=== PATIENT | female | born 1955 | race Caucasian/White ===

== ENCOUNTER → 2016-06-05 | Outpatient (CLI) | payer MEDICAID | LOC: OD 13:37 | PROVIDERS: ATTEND Family Medicine | DX: M25.561 Pain in right knee (principal); J44.9 Chronic obstructive pulmonary disease, unspecified | CPT/HCPCS: 71020 ==

== ENCOUNTER 2017-01-23 09:20 | Emergency (ER) | payer MEDICAID ==
[2017-01-23 09:32] VITALS: BP 142/69
[2017-01-23] MEDS ORDERED: HYDROCODONE/ACETAMINOPHEN 5-325 MG TABLET PO ONE (09:54)
--- NOTE | 2017-01-23 09:54 | ER Document Report ---
HPI - HPI Patient complains to provider of: Low back, left hip pain Onset: Other - 3 days Onset/Duration: Persistent Quality of pain: Achy Pain Level: 4 Context: Patient presents complaining of left hip and low back pain for the past 3 days. Patient also complains of some left ear pain but states she has been taking Alavert to treat serous effusion of left ear. Patient denies any fever or injury. Patient denies any urinary retention or incontinence. Patient does report a previous history of a left hip replacement one year ago. Associated Symptoms: Earache, Other - Left hip, low back Exacerbated by: Standing, Movement, Walking Relieved by: Denies Similar symptoms previously: Yes Recently seen / treated by doctor: Yes - Treated for serous effusion to the ear - ROS ROS below otherwise negative: Yes Systems Reviewed and Negative: Yes All other systems reviewed and negative - CONSTITUTIONAL Constitutional: DENIES: Fever - EENT EENT: REPORTS: Ear Pain - NEURO Neurology: DENIES: Headache - GASTROINTESTINAL Gastrointestinal: DENIES: Nausea, Patient vomiting - URINARY Urinary: DENIES: Dysuria, Urgency - MUSCULOSKELETAL Musculoskeletal: REPORTS: Extremity pain, Back Pain - DERM Skin Color: Normal Skin Problems: None Past Medical History - General Information source: Patient - Social History Smoking Status: Current Every Day Smoker Frequency of alcohol use: None Drug Abuse: None Occupation: None Family History: Reviewed & Not Pertinent - Past Medical History Cardiac Medical History: Denies: Hx Coronary Artery Disease, Hx Heart Attack, Hx Hypertension Pulmonary Medical History: Reports: Hx Bronchitis, Hx COPD Denies: Hx Asthma, Hx Pneumonia Neurological Medical History: Denies: Hx Cerebrovascular Accident, Hx Seizures Renal/ Medical History: Denies: Hx Peritoneal Dialysis Musculoskeltal Medical History: Reports Hx Arthritis Psychiatric Medical History: Reports: Hx Schizophrenia Past Surgical History: Reports: Hx Orthopedic Surgery - Immunizations Hx Diphtheria, Pertussis, Tetanus Vaccination: No Vertical Provider Document - CONSTITUTIONAL Agree With Documented VS: Yes Exam Limitations: No Limitations General Appearance: WD/WN, No Apparent Distress - INFECTION CONTROL TRAVEL OUTSIDE OF THE [place] IN LAST 30 DAYS: No - HEENT HEENT: Atraumatic, Normal ENT Exam, Normocephalic - NECK Neck: Normal Inspection, Supple. negative: Lymphadenopathy-Left, Lymphadenopathy-Right - RESPIRATORY Respiratory: Breath Sounds Normal, No Respiratory Distress, Chest Non-Tender O2 Sat by Pulse Oximetry: 97 - CARDIOVASCULAR Cardiovascular: Regular Rate, Regular Rhythm, No Murmur - GI/ABDOMEN Gastrointestinal: Abdomen Soft, Abdomen Non-Tender, No Organomegaly, Normal Bowel Sounds - BACK Back: Abnormal Inspection - Lower lumbar paraspinal tenderness, no midline tenderness, step-off or deformity. negative: CVA Tenderness-Right, CVA Tenderness-Left - MUSCULOSKELETAL/EXTREMETIES Musculoskeletal/Extremeties: MAEW, FROM, Tender - Tenderness to the lateral aspect of left hip, no deformity or dislocation, No Edema. negative: Eccymosis - NEURO Level of Consciousness: Awake, Alert, Appropriate Motor/Sensory: No Motor Deficit - DERM Integumentary: Warm, Dry, No Rash Course - Vital Signs Vital signs: Temp Pulse Resp BP Pulse Ox 98.7 F 80 16 142/69 H 97 01/23/17 09:29 01/23/17 09:29 01/23/17 09:29 01/23/17 09:29 01/23/17 09:29 Discharge - Discharge Clinical Impression: Elevated blood pressure reading, Left hip pain Low back pain Qualifiers: Chronicity: unspecified Back pain laterality: left Sciatica presence: with sciatica Sciatica laterality: sciatica of left side Qualified Code(s): M54.42 - Lumbago with sciatica, left side Condition: Stable Disposition: HOME, SELF-CARE Instructions: Arthritis ([facility]), Low Back Pain ([facility]), Oral Narcotic Medication ( [facility]), Sciatica ([facility]) Additional Instructions: Return immediately for any new or worsening symptoms Followup with your primary care provider, call tomorrow to make a followup appointment Prescriptions: Hydrocodone/Acetaminophen [[place] 5-325 Tablet] 1 each PO Q6 PRN #15 tablet PRN Reason: Forms: Elevated Blood Pressure Referrals: JASPREET BANDA MD [Primary Care Provider] - Follow up as needed MAEGAN DUMONT DO [NO LOCAL MD] - 01/25/17
--- NOTE | 2017-01-23 10:45 | RADIOLOGY REPORT (SQ) ---
EXAM DESCRIPTION: HIP LEFT AP/LATERAL COMPLETED DATE/TIME: 01/23/2017 10:16 am REASON FOR STUDY: left hip pain COMPARISON: Left femur films 09/27/2014 NUMBER OF VIEWS: Two views. TECHNIQUE: AP pelvis and additional frog-leg view of the left hip. LIMITATIONS: Distal tip of the left femur intramedullary nail is not included in the field of view FINDINGS: MINERALIZATION: Osteopenic LEFT HIP: No fracture or dislocation. Left hip lag screw and intramedullary nail unchanged from 2014. There is ossification of a left greater trochanter bone fragment, chronic in appearance, simil ar compared to 2014. No significant left hip joint space narrowing or acetabular rim bony spurring. RIGHT HIP: No fracture or dislocation. No significant right hip joint space narrowing or acetabular rim bony spurring. PUBIS AND ISCHIUM: No fracture. PELVIS: No fracture. SACRUM: No fracture or dislocation. No worrisome bone lesions. LOWER LUMBAR SPINE: Lower lumbar facet arthropathy at L4-5. SOFT TISSUES: No findings. OTHER: No other significant finding. IMPRESSION: No acute changes. TECHNICAL DOCUMENTATION: JOB ID: [id number] [employer]- All Rights Reserved
--- NOTE | 2017-01-23 10:48 | RADIOLOGY REPORT (SQ) ---
EXAM DESCRIPTION: L SPINE WHOLE COMPLETED DATE/TIME: 01/23/2017 10:16 am REASON FOR STUDY: low back pain COMPARISON: Left hip films same date CT chest 07/15/2014 NUMBER OF VIEWS: Five views including obliques. TECHNIQUE: AP, lateral, oblique, and sacral radiographic images acquired of the lumbar spine. LIMITATIONS: None. FINDINGS: MINERALIZATION: Osteoporotic SEGMENTATION: There are 6 lumbar vertebral bodies. Transitional segment will be labeled T12. This p uts the most inferior well-developed disc space at L5-S1. ALIGNMENT: Normal. VERTEBRAE: Maintained height. No fracture or worrisome bone lesion. DISCS: High-grade disc space loss of height at L4-5 and L5-S1. Moderate disc space loss of height at L1-2. POSTERIOR ELEMENTS: Pedicles and facets are intact. No pars defect or posterior arch defects. Bulky bilateral facet arthropathy at L4-5 and L5-S1 HARDWARE: None in the spine. 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 PELVIS: Intact as visualized. No fractures or worrisome bone lesions. SI joints narrowed and scleroti c OTHER: No other significant finding. IMPRESSION: Lower lumbar degenerative changes. No acute lumbar compression deformity or fracture/malalignment. TECHNICAL DOCUMENTATION: JOB ID: [id number] [employer]- All Rights Reserved
[2017-01-23 11:04] LABS: APPEARANCE,URINE CLEAR; BILIRUBIN,URINE NEGATIVE (NEGATIVE); GLUCOSE, URINE NEGATIVE (NEGATIVE); KETONES,URINE NEGATIVE (NEGATIVE); LEUKOCYTE ESTERASE,URINE NEGATIVE (NEGATIVE); NITRITE,URINE NEGATIVE (NEGATIVE); PROTEIN,URINE NEGATIVE (NEGATIVE); URINE SPECIFIC GRAVITY 1.001; UROBILINOGEN,URINE NEGATIVE mg/dL (<2.0)
== END 2017-01-23 11:47 | disposition home or self-care (01) ==
LOC: ER 09:20
DX: M54.42 Lumbago with sciatica, left side (principal); M25.552 Pain in left hip; R03.0 Elevated blood-pressure reading, without diagnosis of hypertension; M54.5 Low back pain; H92.02 Otalgia, left ear; Z79.899 Other long term (current) drug therapy; F17.200 Nicotine dependence, unspecified, uncomplicated
CPT/HCPCS: 72110; 81001; 99283

== ENCOUNTER 2018-06-04 11:53 | Emergency (ER) | payer MEDICAID ==
[2018-06-04 12:57] LABS: ABSOLUTE EOSINOPHILS # (AUTO) 0.1 10^3/uL (0.0-0.6); ABSOLUTE LYMPHOCYTES (AUTO) 0.9 10^3/uL (0.5-4.7); ABSOLUTE MONOCYTES (AUTO) 1.6 10^3/uL (0.1-1.4); ABSOLUTE NEUT (AUTO) 8.8 10^3/uL (1.7-8.2); BASOPHILS % (AUTO) 0.4 % (0-2); EOSINOPHILS % (AUTO) 0.8 % (0-6); HEMATOCRIT 38.6 % (36.0-47.0); HEMOGLOBIN 13.5 g/dL (12.0-15.5); LYMPHOCYTES % (AUTO) 7.9 % (13-45); MEAN CORPUSCULAR HEMOGLOBIN 30.9 pg (27.0-33.4); MEAN CORPUSCULAR VOLUME 88 fl (80-97); MONOCYTES % (AUTO) 14.1 % (3-13); PLATELET COUNT 344 10^3/uL (150-450); RED BLOOD COUNT 4.37 10^6/uL (3.72-5.28); RED CELL DISTRIBUTION WIDTH 13.6 % (11.5-14.0); SEGMENTED NEUTROPHILS % (AUTO) 76.8 % (42-78); TOTAL CELLS COUNTED % (AUTO) 100 %; WHITE BLOOD COUNT 11.4 10^3/uL (4.0-10.5)
[2018-06-04] MEDS ORDERED: ZIPRASIDONE MESYLATE INJ/PF 20 MG SDV IM ONE (13:20)
[2018-06-04 13:25] LABS: ALANINE AMINOTRANSFERASE 96 U/L (9-52); ALBUMIN 4.6 g/dL (3.5-5.0); ALKALINE PHOSPHATASE 120 U/L (38-126); ANION GAP 12 (5-19); ASPARTATE AMINO TRANSFERASE 155 U/L (14-36); BILIRUBIN,DIRECT 0.3 mg/dL (0.0-0.4); BILIRUBIN,TOTAL 0.7 mg/dL (0.2-1.3); BLOOD UREA NITROGEN 10 mg/dL (7-20); CALCIUM 10.2 mg/dL (8.4-10.2); CARBON DIOXIDE 30 mmol/L (22-30); CHLORIDE 92 mmol/L (98-107); GLUCOSE 120 mg/dL (75-110); POTASSIUM 4.6 mmol/L (3.6-5.0); TOTAL PROTEIN 6.9 g/dL (6.3-8.2)
[2018-06-04 13:26] LABS: ACETAMINOPHEN < 10 ug/mL (10-30); ALCOHOL < 10 mg/dL (NONE DETECTED); SALICYLATE < 1.0 mg/dL (2.0-20.0)
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
[2018-06-04 14:04] LABS: APPEARANCE,URINE CLOUDY; BILIRUBIN,URINE NEGATIVE (NEGATIVE); COLOR,URINE YELLOW; GLUCOSE, URINE NEGATIVE (NEGATIVE); KETONES,URINE 20 mg/dL (NEGATIVE); LEUKOCYTE ESTERASE,URINE LARGE (NEGATIVE); NITRITE,URINE NEGATIVE (NEGATIVE); PROTEIN,URINE NEGATIVE (NEGATIVE); URINE SPECIFIC GRAVITY 1.006; UROBILINOGEN,URINE NEGATIVE mg/dL (<2.0)
[2018-06-04 14:17] LABS: URINE AMPHETAMINES SCREEN NEGATIVE; URINE BARBITURATES SCREEN NEGATIVE; URINE BENZODIAZEPINES SCREEN NEGATIVE; URINE COCAINE SCREEN NEGATIVE; URINE MARIJUANA (THC) SCREEN NEGATIVE; URINE METHADONE SCREEN NEGATIVE; URINE PHENCYCLIDINE SCREEN NEGATIVE
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
[2018-06-04] MEDS: CEPHALEXIN 500 MG CAPSULE PO SCH (14:31)
[2018-06-04] MEDS ORDERED: LORAZEPAM INJ 2 MG/1 ML VIAL IM ONE (15:45)
[2018-06-04] MEDS ORDERED: BENZTROPINE MESYLATE INJ 2 MG/2 ML AMPULE IM ONE (15:46)
--- NOTE | 2018-06-04 20:03 | EKG REPORT ---
SEVERITY:- OTHERWISE NORMAL ECG - SINUS TACHYCARDIA : Confirmed by: Bill Robles 04-Jun-2018 20:03:07
[2018-06-05] MEDS ORDERED: IPRATROPIUM/ALBUTEROL 0.5-2.5 MG/3 ML AMPUL NEB ONE ×2 (07:40→09:49)
--- NOTE | 2018-06-05 09:51 | ER Document Report ---
Doctor's Note Notes: Patient seen and examined, vital signs reviewed. Nursing notes reviewed, behavioral health team note reviewed. Patient was refusing oral medications yesterday, was given Geodon, 20 mg IM, as well as 2 mg of IM Ativan and 1 mg of IM Cogentin, she was started on Keflex for UTI, received 1 dose yesterday. Medications are noted in the chart to be ordered for today, discussed with the patient, the importance of taking the Prolixin 2.5 mg twice daily, she states that she was on in the past and it did work, she dates she is been off of it for some time. In addition to her mental health issues, patient was wheezing quite a bit this morning, she does have a significant smoking history denies history of COPD. She denies feeling short of breath or having any chest pain. No other complaints at this time. Patient does seem to be irritated still that she is in the hospital, but is seemingly willing to take the medication today.
[2018-06-05] MEDS: CEPHALEXIN 500 MG CAPSULE PO SCH ×3 (10:18→18:24)
[2018-06-05] MEDS: FLUPHENAZINE HCL 2.5 MG TABLET PO SCH ×4 (10:18→18:24)
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
[2018-06-05] MEDS ORDERED: FLUPHENAZINE DECANOATE INJ 125 MG/5 ML VIAL IM STA (11:51)
[2018-06-05] MEDS ORDERED: BENZTROPINE MESYLATE INJ 2 MG/2 ML AMPULE IM STA (11:52)
[2018-06-05] MEDS: BENZTROPINE MESYLATE 1 MG TABLET PO SCH (13:10)
[2018-06-05] MEDS ORDERED: BENZTROPINE MESYLATE 1 MG TABLET PO SCH (14:53)
[2018-06-06] MEDS ORDERED: ALBUTEROL SULFATE HFA (90 MCG/PUFF) 8 GM MDI (1 MDI/ER DISP) IH PRN (10:03)
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
[2018-06-06] MEDS: BENZTROPINE MESYLATE 1 MG TABLET PO SCH (11:07)
[2018-06-06] MEDS: FLUPHENAZINE HCL 2.5 MG TABLET PO SCH (11:07)
[2018-06-06] MEDS: CEPHALEXIN 500 MG CAPSULE PO SCH (11:08)
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
[2018-06-06 13:56] VITALS: BP 151/69
== END 2018-06-06 18:35 ==
LOC: ER 11:53
DX: F91.9 Conduct disorder, unspecified (principal); R41.82 Altered mental status, unspecified; F17.200 Nicotine dependence, unspecified, uncomplicated; J44.9 Chronic obstructive pulmonary disease, unspecified
CPT/HCPCS: 93005; 94640 ×2; 99285; 96372; 36415; 87086; 80307 ×4; 85025; 87088; 80053; 81001; 87186; 93010; J3490 ×4; J0515; J2060; J3486; J7620

== ENCOUNTER 2018-08-30 16:41 | Emergency (ER) | payer MEDICAID ==
[2018-08-30 17:23] VITALS: BP 123/90
--- NOTE | 2018-08-30 17:41 | EKG REPORT ---
SEVERITY:- NORMAL ECG - SINUS RHYTHM : Confirmed by: Emmie Allison MD 30-Aug-2018 17:41:11
[2018-08-30 17:45] LABS: ABSOLUTE LYMPHOCYTES (AUTO) 0.9 10^3/uL (0.5-4.7); ABSOLUTE MONOCYTES (AUTO) 1.2 10^3/uL (0.1-1.4); BASOPHILS % (AUTO) 0.4 % (0-2); EOSINOPHILS % (AUTO) 0.4 % (0-6); HEMATOCRIT 38.7 % (36.0-47.0); HEMOGLOBIN 13.4 g/dL (12.0-15.5); LYMPHOCYTES % (AUTO) 9.6 % (13-45); MEAN CORPUSCULAR HEMOGLOBIN 30.1 pg (27.0-33.4); MEAN CORPUSCULAR HGB CONC 34.5 g/dL (32.0-36.0); MEAN CORPUSCULAR VOLUME 87 fl (80-97); MONOCYTES % (AUTO) 12.8 % (3-13); PLATELET COUNT 291 10^3/uL (150-450); RED BLOOD COUNT 4.44 10^6/uL (3.72-5.28); RED CELL DISTRIBUTION WIDTH 13.5 % (11.5-14.0); SEGMENTED NEUTROPHILS % (AUTO) 76.8 % (42-78); TOTAL CELLS COUNTED % (AUTO) 100 %; WHITE BLOOD COUNT 9.2 10^3/uL (4.0-10.5)
[2018-08-30 18:08] LABS: ALANINE AMINOTRANSFERASE 43 U/L (9-52); ALBUMIN 3.9 g/dL (3.5-5.0); ALKALINE PHOSPHATASE 106 U/L (38-126); ANION GAP 10 (5-19); ASPARTATE AMINO TRANSFERASE 31 U/L (14-36); BILIRUBIN,DIRECT 0.3 mg/dL (0.0-0.4); BILIRUBIN,TOTAL 0.5 mg/dL (0.2-1.3); BLOOD UREA NITROGEN 9 mg/dL (7-20); CALCIUM 9.2 mg/dL (8.4-10.2); CARBON DIOXIDE 28 mmol/L (22-30); CHLORIDE 95 mmol/L (98-107); GLUCOSE 101 mg/dL (75-110); POTASSIUM 3.9 mmol/L (3.6-5.0); SODIUM 132.8 mmol/L (137-145); TOTAL PROTEIN 6.3 g/dL (6.3-8.2)
[2018-08-30 18:09] LABS: ACETAMINOPHEN < 10 ug/mL (10-30); ALCOHOL < 10 mg/dL (NONE DETECTED); SALICYLATE < 1.0 mg/dL (2.0-20.0)
--- NOTE | 2018-08-30 18:26 | ER Document Report ---
ED General - General Chief Complaint: Psych Problem Stated Complaint: IVC Time Seen by Provider: 08/30/18 17:50 Primary Care Provider: JASPREET BANDA MD [Primary Care Provider] - Follow up as needed Mode of Arrival: Medic Information source: Emergency Med Personnel, [facility] Records Notes: This is a 63-year-old female with a history of schizoaffective disorder since 1997 who was previously had ER encounters for significant agitation and aggressiveness in the setting of medicine noncompliance who was brought into the emergency room with significant agitation. The family had reported to EMS that the patient had stopped taking her medicines. Patient was given Haldol, Versed and Benadryl by EMS prior to arrival. Currently, patient is agitated. She knows where she is and she is interactive, but she is very angry and threatening to staff. TRAVEL OUTSIDE OF THE [place] IN LAST 30 DAYS: No - HPI Onset: Last week Onset/Duration: Gradual Quality of pain: No pain Severity: None Pain Level: Denies Associated symptoms: None. denies: Chest pain, Fever Exacerbated by: Denies Relieved by: Denies Similar symptoms previously: Yes Recently seen / treated by doctor: No - Related Data Allergies/Adverse Reactions: No Known Allergies Allergy (Verified 01/23/17 09:57) Past Medical History - General Information source: Patient - Social History Smoking Status: Never Smoker Cigarette use (# per day): No Chew tobacco use (# tins/day): No Frequency of alcohol use: None Drug Abuse: None Lives with: Family Family History: Reviewed & Not Pertinent Patient has suicidal ideation: No Patient has homicidal ideation: No - Past Medical History Cardiac Medical History: Denies: Hx Coronary Artery Disease, Hx Heart Attack, Hx Hypertension Pulmonary Medical History: Reports: Hx Bronchitis, Hx COPD Denies: Hx Asthma, Hx Pneumonia Neurological Medical History: Denies: Hx Cerebrovascular Accident, Hx Seizures Renal/ Medical History: Denies: Hx Peritoneal Dialysis Musculoskeletal Medical History: Reports Hx Arthritis Psychiatric Medical History: Reports: Hx Schizophrenia Past Surgical History: Reports: Hx Orthopedic Surgery - Immunizations Hx Diphtheria, Pertussis, Tetanus Vaccination: No Review of Systems - Review of Systems Constitutional: denies: Chills, Fever EENT: No symptoms reported Cardiovascular: No symptoms reported Respiratory: No symptoms reported Gastrointestinal: No symptoms reported Genitourinary: No symptoms reported Female Genitourinary: No symptoms reported Musculoskeletal: No symptoms reported Skin: No symptoms reported Hematologic/Lymphatic: No symptoms reported Neurological/Psychological: See HPI Physical Exam - Vital signs Vitals: Temp Pulse Resp BP Pulse Ox 98.0 F 88 18 123/90 H 100 08/30/18 17:21 08/30/18 17:21 08/30/18 17:21 08/30/18 17:21 08/30/18 17:21 Notes: Physical exam: GENERAL: Patient is alert and oriented, she is very agitated and aggressive. She is afebrile and her blood pressure is 125/70. HEAD: Atraumatic, normocephalic. EYES: Pupils equal round and reactive to light, extraocular movements intact, sclera anicteric, conjunctiva are normal. ENT: TMs normal, nares patent, oropharynx clear without exudates. Moist mucous membranes. NECK: Normal range of motion, supple without obvious mass or JVD. LUNGS: Breath sounds clear to auscultation bilaterally and equal. No wheezes rales or rhonchi. HEART: Regular rate and rhythm without murmurs, rubs or gallops. ABDOMEN: Soft, normoactive bowel sounds. No tenderness to palpation. No guarding, no rebound. No masses appreciated. EXTREMITIES: Normal range of motion, no pitting or edema. No clubbing or cyanosis. NEUROLOGICAL: Cranial nerves II through XII grossly intact. Normal speech, moving all extremities. PSYCH: Agitated and aggressive. SKIN: Mild abrasions to the right index finger. Course - Re-evaluation Re-evalutation: 08/30/18 20:05 Patient is medically stable for psychiatric disposition - Vital Signs Vital signs: Temp Pulse Resp BP Pulse Ox 98.0 F 88 18 123/90 H 100 08/30/18 17:21 08/30/18 17:21 08/30/18 17:21 08/30/18 17:21 08/30/18 17:21 - Laboratory Result Diagrams: 08/30/18 17:36 08/30/18 17:36 Laboratory results interpreted by me: 08/30/18 08/30/18 08/30/18 17:36 17:36 18:50 Lymphocytes % 9.6 L Sodium 132.8 L Chloride 95 L Creatinine 0.41 L Urine Ketones TRACE H Ur Leukocyte Esterase TRACE H Salicylates < 1.0 L Acetaminophen < 10 L - EKG Interpretation by Me Rate: Normal Rhythm: NSR - EKG shows normal sinus rhythm with a ventricular rate of 95, no acute ST-T wave changes Discharge - Discharge Clinical Impression: Decompensated Schizoaffective disorder Condition: Stable Disposition: PSYCH HOSP/UNIT Referrals: JASPREET BANDA MD [Primary Care Provider] - Follow up as needed
[2018-08-30] MEDS ORDERED: BENZTROPINE MESYLATE 1 MG TABLET PO ONE (18:33)
[2018-08-30] MEDS: FLUPHENAZINE HCL 2.5 MG TABLET PO SCH (18:44)
[2018-08-30 19:16] LABS: APPEARANCE,URINE CLEAR; COLOR,URINE STRAW; GLUCOSE, URINE NEGATIVE (NEGATIVE)
[2018-08-30 19:17] LABS: BILIRUBIN,URINE NEGATIVE (NEGATIVE); KETONES,URINE TRACE mg/dL (NEGATIVE); LEUKOCYTE ESTERASE,URINE TRACE (NEGATIVE); NITRITE,URINE NEGATIVE (NEGATIVE); PROTEIN,URINE NEGATIVE (NEGATIVE); URINE SPECIFIC GRAVITY 1.002; UROBILINOGEN,URINE NEGATIVE mg/dL (<2.0)
[2018-08-30 19:30] LABS: URINE AMPHETAMINES SCREEN NEGATIVE; URINE BARBITURATES SCREEN NEGATIVE; URINE BENZODIAZEPINES SCREEN UNCONFIRMED POSITIVE; URINE COCAINE SCREEN NEGATIVE; URINE MARIJUANA (THC) SCREEN NEGATIVE; URINE METHADONE SCREEN NEGATIVE; URINE PHENCYCLIDINE SCREEN NEGATIVE
[2018-08-30 19:32] LABS: FREE T3 4.65 pg/mL (2.77-5.27)
[2018-08-30 19:46] LABS: THYROID STIMULATING HORMONE 1.72 uIU/mL (0.47-4.68)
[2018-08-31] MEDS ORDERED: ZIPRASIDONE MESYLATE INJ/PF 20 MG SDV IM ONE ×3 (00:27→20:13)
[2018-08-31] MEDS ORDERED: FLUPHENAZINE DECANOATE INJ 125 MG/5 ML VIAL IM ONE (09:50)
[2018-08-31] MEDS: FLUPHENAZINE HCL 2.5 MG TABLET PO SCH (09:51)
[2018-08-31] MEDS: OLANZAPINE INJ/PF 10 MG SDV IM SCH ×2 (09:56→17:12)
--- NOTE | 2018-08-31 09:56 | ER Document Report ---
Doctor's Note Notes: 08/31/18 09:55 Rounds: Chart reviewed. Attempted to interview patient but she is uncooperative and unreliable. Patient has a history of schizophrenia and was brought in due to agitation. She is currently in restraints. Was given Haldol and Versed last night. Lab studies are all essentially normal. Vital signs were all essentially normal. Patient appears to be medically stable for transfer or discharge. Paulina Carr MD
[2018-08-31] MEDS: BENZTROPINE MESYLATE INJ 2 MG/2 ML AMPULE IM SCH (10:00)
[2018-08-31] MEDS ORDERED: OLANZAPINE 5 MG TABLET PO ONE (18:00)
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
--- NOTE | 2018-09-01 09:46 | ER Document Report ---
Doctor's Note Notes: 09/01/18 09:46 Rounds: Chart reviewed and patient interviewed. Patient is confused and somewhat agitated. Better than she has been. Does not require restraints at this time. Argumentative and demanding, but not threatening. Lab studies were all essentially normal. Vital signs are essentially normal. Patient appears to be medically stable for transfer or discharge. Paulina Carr MD
[2018-09-01] MEDS: OLANZAPINE INJ/PF 10 MG SDV IM SCH ×2 (10:02→22:04)
[2018-09-01] MEDS: BENZTROPINE MESYLATE INJ 2 MG/2 ML AMPULE IM SCH (10:02)
[2018-09-01] MEDS: FLUPHENAZINE HCL 2.5 MG TABLET PO SCH (10:03)
--- NOTE | 2018-09-01 14:52 | PSYCHOLOGICAL NOTE ---
Psych Note - Psych Note Date seen by psych provider: 09/01/18 Time seen by psych provider: 07:10 - Dicussion with overnight nurse, obersavtion and chart review Psych Note: Reason for Consult: 1st re evaluation, IVC, Schizoaffective Hx, noncompliant with medication, not eating, burning neck Contact Permissions: Unknown Patient is a 63 year old female in the ED on IVC by [facility] for history of MH and treatment, noncompliant with medication, not eating (lost 20 pounds in 10 days) and burning self on the neck. She was started on scheduled medications yesterday and still required additional Geodon 20MG IM last evening (2049) for continued stabilization. She has continued to require constant redirection, loud tone of voice/yelling/being derogatory. She is out of restraints and er overnight nurse 1400 will make 24 hours of being out of restraints. Diagnosis: 295.70 (F25.0) Schizoaffective Disorder, Bipolar Type Impression/Plan: Recommendation to maintain IVC. She continued to have mood lability per attending overnight nurse. She has a history of Schizoaffective, has history of noncompliance with medications and treatment, has been off her medication, not eating and burning her neck. Medications were just started yesterday. Will continue seeking inpatient placement. Consulted with Dr. Carlos regarding the management and care of patient. ED Physician in agreement with recommendations.
[2018-09-01] MEDS ORDERED: ZIPRASIDONE MESYLATE INJ/PF 20 MG SDV IM ONE (18:40)
[2018-09-01] MEDS ORDERED: DIPHENHYDRAMINE HCL 25 MG CAPSULE PO PRN (18:46)
--- NOTE | 2018-09-02 01:03 | ER Document Report ---
Doctor's Note Notes: 09/02/18 01:01 Patient agitated, cursing at staff, pacing. Was ordered Geodon earlier, but did not receive it. Patient will be given Geodon now.
[2018-09-02] MEDS ORDERED: ZIPRASIDONE MESYLATE INJ/PF 20 MG SDV IM ONE (02:00)
[2018-09-02] MEDS ORDERED: OLANZAPINE 5 MG TAB.RAPDIS PO ONE ×2 (10:27→11:40)
[2018-09-02] MEDS ORDERED: BENZTROPINE MESYLATE 1 MG TABLET PO ONE (10:27)
--- NOTE | 2018-09-02 10:29 | ER Document Report ---
Doctor's Note Notes: 09/02/18 10:28 Patient seen and examined, vital signs reviewed, patient still is rather agitated and aggressive, has been accepted for psychiatric inpatient facility this morning, will give her a dose of p.o. Zyprexa, and Yadi, she did take p.o. Benadryl this morning without issue. Patient agitated, not particularly a greeable with plan of care, but patient will benefit from inpatient psychiatric care, given her significant degree of agitation, and aggressive behavior.
[2018-09-02] MEDS: OLANZAPINE INJ/PF 10 MG SDV IM SCH (10:40)
[2018-09-02] MEDS: BENZTROPINE MESYLATE INJ 2 MG/2 ML AMPULE IM SCH (10:40)
[2018-09-02] MEDS: FLUPHENAZINE HCL 2.5 MG TABLET PO SCH (10:40)
--- NOTE | 2018-09-04 13:48 | PSYCHOLOGICAL NOTE ---
Psych Note - Psych Note Date seen by psych provider: 09/02/18 Time seen by psych provider: 07:40 Psych Note: Reason for Consult: IVC Contact Permissions: Unknown Patient is a 63 year old female in the ED on IVC by [facility] for history of MH and treatment, noncompliant with medication, not eating (lost 20 pounds in 10 days) and burning self on the neck. Check-in with patient. Patient is very agitated with yelling, cussing and pointing her finger. It is unclear what upsets patient as patient randomly will exit her room and start yelling and does not seem to be specifically upset about anything. Clinician notes patient has been very little personal space issues as patient approached very close to clinician, almost coming into contact. Clinician used clip board to establish more space and limit the patient's ability to make contact. Diagnosis: 295.70 (F25.0) Schizoaffective Disorder, Bipolar Type Impression/Plan: Recommendation to maintain IVC. She continued to have mood lability and randomly comes out of her room to yell. She has a history of Schizoaffective, has history of noncompliance with medications and treatment, has been off her medication, not eating and burning her neck. Patient was accepted to [facility]; transportation was requested. Dr. Carlos was consulted and the care and management of this patient; attending physicians in agreement with recommendations and disposition.
== END 2018-09-02 12:10 ==
LOC: ER 16:41
DX: F25.0 Schizoaffective disorder, bipolar type (principal); Z78.1 Physical restraint status; M54.2 Cervicalgia; R63.0 Anorexia
CPT/HCPCS: 93005; 99285; 36415; 84439; 80307 ×4; 84443; 85025; 80053; 81001; 84481; 93010; J3490 ×8; J0515 ×2; J2680; J3486 ×2

== ENCOUNTER 2018-11-29 19:54 | Emergency (ER) | payer SELFPAY ==
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
[2018-11-29 20:58] LABS: ABSOLUTE EOSINOPHILS # (AUTO) 0.1 10^3/uL (0.0-0.6); ABSOLUTE MONOCYTES (AUTO) 0.8 10^3/uL (0.1-1.4); ABSOLUTE NEUT (AUTO) 5.4 10^3/uL (1.7-8.2); BASOPHILS % (AUTO) 0.5 % (0-2); EOSINOPHILS % (AUTO) 1.3 % (0-6); HEMATOCRIT 37.1 % (36.0-47.0); HEMOGLOBIN 12.7 g/dL (12.0-15.5); LYMPHOCYTES % (AUTO) 13.3 % (13-45); MEAN CORPUSCULAR HEMOGLOBIN 30.2 pg (27.0-33.4); MEAN CORPUSCULAR HGB CONC 34.3 g/dL (32.0-36.0); MEAN CORPUSCULAR VOLUME 88 fl (80-97); PLATELET COUNT 269 10^3/uL (150-450); RED BLOOD COUNT 4.22 10^6/uL (3.72-5.28); RED CELL DISTRIBUTION WIDTH 13.5 % (11.5-14.0); SEGMENTED NEUTROPHILS % (AUTO) 73.9 % (42-78); TOTAL CELLS COUNTED % (AUTO) 100 %; WHITE BLOOD COUNT 7.3 10^3/uL (4.0-10.5)
[2018-11-29 21:16] LABS: ACETAMINOPHEN < 10 ug/mL (10-30); ALBUMIN 3.9 g/dL (3.5-5.0); ALCOHOL < 10 mg/dL (NONE DETECTED); ALKALINE PHOSPHATASE 100 U/L (38-126); ANION GAP 9 (5-19); ASPARTATE AMINO TRANSFERASE 48 U/L (14-36); BILIRUBIN,DIRECT 0.2 mg/dL (0.0-0.4); BILIRUBIN,TOTAL 0.3 mg/dL (0.2-1.3); BLOOD UREA NITROGEN 9 mg/dL (7-20); CALCIUM 9.2 mg/dL (8.4-10.2); CARBON DIOXIDE 28 mmol/L (22-30); CHLORIDE 93 mmol/L (98-107); GLUCOSE 127 mg/dL (75-110); POTASSIUM 3.9 mmol/L (3.6-5.0); SALICYLATE < 1.0 mg/dL (2.0-20.0); TOTAL PROTEIN 6.1 g/dL (6.3-8.2)
[2018-11-29 21:38] LABS: APPEARANCE,URINE SLIGHTLY-CLOUDY; BILIRUBIN,URINE NEGATIVE (NEGATIVE); COLOR,URINE YELLOW; GLUCOSE, URINE NEGATIVE (NEGATIVE); KETONES,URINE NEGATIVE (NEGATIVE); LEUKOCYTE ESTERASE,URINE MODERATE (NEGATIVE); NITRITE,URINE NEGATIVE (NEGATIVE); PROTEIN,URINE NEGATIVE (NEGATIVE); URINE SPECIFIC GRAVITY 1.002; UROBILINOGEN,URINE NEGATIVE mg/dL (<2.0)
[2018-11-29 21:44] LABS: URINE AMPHETAMINES SCREEN NEGATIVE; URINE BENZODIAZEPINES SCREEN UNCONFIRMED POSITIVE; URINE COCAINE SCREEN NEGATIVE; URINE MARIJUANA (THC) SCREEN NEGATIVE; URINE PHENCYCLIDINE SCREEN NEGATIVE
[2018-11-29 21:50] LABS: URINE BARBITURATES SCREEN NEGATIVE
[2018-11-29 21:51] LABS: URINE METHADONE SCREEN NEGATIVE
[2018-11-30] MEDS ORDERED: LORAZEPAM INJ 2 MG/1 ML VIAL IM ONE ×2 (00:53→21:36)
[2018-11-30] MEDS ORDERED: DIPHENHYDRAMINE HCL 50 MG/ML VIAL IM ONE ×2 (00:53→21:38)
--- NOTE | 2018-11-30 07:28 | EKG REPORT ---
SEVERITY:- BORDERLINE ECG - SINUS RHYTHM BORDERLINE R WAVE PROGRESSION, ANTERIOR LEADS LIKELY DUE TO LEAD PLACEMENT ERROR. CLINICAL CORRELATIO N NEEDED. : Confirmed by: Chuck Riley MD 30-Nov-2018 07:27:22
[2018-11-30 09:07] VITALS: BP 159/85
--- NOTE | 2018-11-30 10:49 | ER Document Report ---
Doctor's Note Notes: 11/30/18 10:48 Rounds: Chart reviewed and patient interviewed. Patient is here to be evaluated for aggressive behavior. Has a history of schizophrenia but noncompliant with medications. Lab studies showed sodium slightly low at 130 chloride 93. Urinalysis had some white cells, but patient has no symptoms of UTI. A culture was ordered. Vital signs are all normal. Patient appears to be medically stable for transfer or discharge. Paulina Carr MD
[2018-11-30] MEDS ORDERED: FLUPHENAZINE DECANOATE INJ 125 MG/5 ML VIAL IM ONE (11:24)
[2018-11-30] MEDS ORDERED: FLUPHENAZINE HCL 2.5 MG TABLET PO SCH (12:00)
[2018-11-30] MEDS: BENZTROPINE MESYLATE 1 MG TABLET PO SCH ×2 (13:09→18:46)
[2018-11-30] MEDS: FLUPHENAZINE HCL 2.5 MG TABLET PO SCH ×2 (13:10→22:10)
--- NOTE | 2018-12-01 09:28 | PSYCHOLOGICAL NOTE ---
Psych Note - Psych Note Date seen by psych provider: 12/01/18 Time seen by psych provider: 07:10 - 83 Psych Note: Reason for Consult: Psychosis Contact Permissions: Check-in with patient. Patient is calm and able to talk with clinician with organized and linear conversation. Patient reports that she has a provider that she sees but does not feel the need for psychiatric services. Patient identified wanting to go home so she can do laundry. She states she has no concerns and this time. Patient denies thoughts of wanting to harm herself or others. Patient makes good eye contact and does not demonstrate any psychomotor agitation. Chart review Patient was seen 08/30/2018 until 09/02/2018 when she was accepted to [facility] for inpatient treatment. Patient's mood was liable and she was verbally aggressive during that entire [facility] visit. Patient was seen 06/04/2018 until 06/06/2018 when she was accepted to [facility] for inpatient treatment. Patient's mood was liable and she was verbally aggressive during that entire [facility] visit. There was no prior visits for psychiatric concerns. Patient is noted to only to have one prescription from August from [facility], no other prescriptions are in the system. Patient is demonstrating noncompliance with medications and outpatient follow up. Diagnosis: 295.70 (F25.0) Schizoaffective Disorder, Bipolar Type Medication recommendations per [facility]'s contracted psychiatrist Dr. Lydia LUNDBERG are as follows Prolixin 2.5 mg twice daily Cogentin 1 mg twice daily Impression/Plan: Recommendation to rescind IVC and is cleared from acute psychiatric services. Prior to 2018 patient was not seen for any psychiatric concerns. There does not seem to be a significant history of outpatient services. Patient and patient's family have identified in the past psychiatric diagnosis. At this time patient is presenting calm and engaging in organized linear conversations. She denies any thoughts of wanting to harm herself or others. There is no behaviors to support that she is responding to internal stimuli. Patient received a Prolixin Decanoate shot to assist with her medication noncompliance. Patient is recommended to follow-up with a neurologist as people with serious chronic mental health disorders, noted neurodegenerative processes can begin earlier than general population. Dr. Carlos was consulted and the care and management of this patient; attending physicians in agreement with recommendations and disposition.
--- NOTE | 2018-12-01 09:44 | ER Document Report ---
Doctor's Note Notes: Patient seen and examined, vital signs reviewed, patient presented with combative behavior, off of her medications, she is stable this morning, cooperative, answering questions appropriately, and at this point I feel that the patient can be discharged home, will prescribe her Prolixin 2.5 mg twice daily and Cogentin 1 mg twice daily, and have her follow-up with her outpatient psychiatric services. Patient agreeable to plan of care and will be discharged home, IVC paperwork was rescinded.
[2018-12-01] MEDS: BENZTROPINE MESYLATE 1 MG TABLET PO SCH (13:02)
[2018-12-01] MEDS: FLUPHENAZINE HCL 2.5 MG TABLET PO SCH (13:02)
== END 2018-12-01 19:05 | disposition home or self-care (01) ==
LOC: ER 19:54
DX: F25.9 Schizoaffective disorder, unspecified (principal); T43.3X6A Underdosing of phenothiazine antipsychotics and neuroleptics, initial encounter; T50.906A Underdosing of unspecified drugs, medicaments and biological substances, initial encounter; Z91.128 Patient's intentional underdosing of medication regimen for other reason; Z91.14 Patient's other noncompliance with medication regimen; E87.1 Hypo-osmolality and hyponatremia; R45.6 Violent behavior; Z87.891 Personal history of nicotine dependence
CPT/HCPCS: 36415; 80053; 80307; 81001; 85025; 87086; 87088; 93005; 93010

== ENCOUNTER 2019-01-14 19:25 | Emergency (ER) | payer SELFPAY ==
[2019-01-14] MEDS ORDERED: HALOPERIDOL LACTATE INJ 5 MG/1 ML VIAL IM ONE (19:29)
[2019-01-14] MEDS ORDERED: LORAZEPAM INJ 2 MG/1 ML VIAL IM ONE (19:29)
[2019-01-14] MEDS ORDERED: DIPHENHYDRAMINE HCL 50 MG/ML VIAL IM ONE (19:29)
--- NOTE | 2019-01-14 19:38 | ER Document Report ---
ED Psych Disorder / Suicide - General Stated Complaint: IVC Mode of Arrival: Carried Information source: Law Enforcement TRAVEL OUTSIDE OF THE U.S. IN LAST 30 DAYS: No - HPI Notes: 63 yr old female presents today by [place] [employer] for complaints of hallucinations while carrying around a knife in the house threatening to kill everybody. Patient is screaming and combative. Has a history of schizophrenia. no chest pain, no sob. - Related Data Allergies/Adverse Reactions: No Known Allergies Allergy (Verified 01/23/17 09:57) Past Medical History - General Information source: Patient, Law Enforcement - Social History Smoking Status: Unknown if Ever Smoked Lives with: Spouse/Significant other Family History: Reviewed & Not Pertinent - Past Medical History Cardiac Medical History: Denies: Hx Coronary Artery Disease, Hx Heart Attack, Hx Hypertension Pulmonary Medical History: Reports: Hx Bronchitis, Hx COPD Denies: Hx Asthma, Hx Pneumonia Neurological Medical History: Denies: Hx Cerebrovascular Accident, Hx Seizures Renal/ Medical History: Denies: Hx Peritoneal Dialysis Musculoskeletal Medical History: Reports Hx Arthritis Psychiatric Medical History: Reports: Hx Schizophrenia Past Surgical History: Reports: Hx Orthopedic Surgery - Immunizations Hx Diphtheria, Pertussis, Tetanus Vaccination: No Review of Systems - Review of Systems Constitutional: No symptoms reported EENT: No symptoms reported Cardiovascular: No symptoms reported Respiratory: No symptoms reported Gastrointestinal: No symptoms reported Genitourinary: No symptoms reported Female Genitourinary: No symptoms reported Musculoskeletal: No symptoms reported Skin: No symptoms reported Hematologic/Lymphatic: No symptoms reported Neurological/Psychological: See HPI Physical Exam - Notes Notes: PHYSICAL EXAMINATION: GENERAL: Well-appearing, well-nourished and in no acute distress. HEAD: Atraumatic, normocephalic. EYES: Pupils equal round and reactive to light, extraocular movements intact, conjunctiva are normal. ENT: Nares patent, oropharynx clear without exudates. Moist mucous membranes. NECK: Normal range of motion, supple without lymphadenopathy LUNGS: Breath sounds clear to auscultation bilaterally and equal. No wheezes rales or rhonchi. HEART: Regular rate and rhythm without murmurs ABDOMEN: Soft, nontender, nondistended abdomen. No guarding, no rebound. No m asses appreciated. Female : deferred Musculoskeletal: Normal range of motion, no pitting or edema. No cyanosis. NEUROLOGICAL: Cranial nerves grossly intact. Normal speech, normal gait. Normal sensory, motor exams PSYCH: Yelling, screaming SKIN: Warm, Dry, normal turgor, no rashes or lesions noted. Course - Re-evaluation Re-evalutation: 01/14/19 19:33 1920- Patient was trying to hit the police officers as well as the nurse, threatening to "kill everyone", while kicking and screaming. Attempted to use distraction prior to using four-point restraints was decided to place patient in a four-point restraints will administer medications. Signs stable no distress. Patient given 2mg Ativan, 50mg Benadryl and 5mg Haldol IM. Patient in no distress 10 minutes after medication given, discussed with nurse releasing restraints. Report given MICHELLE Manrique at 1999 Discharge - Discharge Clinical Impression: Suicidal behavior Condition: Stable Disposition: PSYCH HOSP/UNIT
[2019-01-14 20:34] LABS: ABSOLUTE BASOPHILS # (AUTO) 0.1 10^3/uL (0.0-0.2); ABSOLUTE LYMPHOCYTES (AUTO) 0.9 10^3/uL (0.5-4.7); ABSOLUTE MONOCYTES (AUTO) 0.8 10^3/uL (0.1-1.4); ABSOLUTE NEUT (AUTO) 5.1 10^3/uL (1.7-8.2); BASOPHILS % (AUTO) 0.8 % (0-2); EOSINOPHILS % (AUTO) 0.7 % (0-6); HEMATOCRIT 36.1 % (36.0-47.0); HEMOGLOBIN 12.7 g/dL (12.0-15.5); LYMPHOCYTES % (AUTO) 12.4 % (13-45); MEAN CORPUSCULAR HEMOGLOBIN 30.5 pg (27.0-33.4); MEAN CORPUSCULAR VOLUME 87 fl (80-97); PLATELET COUNT 293 10^3/uL (150-450); RED BLOOD COUNT 4.15 10^6/uL (3.72-5.28); RED CELL DISTRIBUTION WIDTH 13.3 % (11.5-14.0); SEGMENTED NEUTROPHILS % (AUTO) 74.1 % (42-78); TOTAL CELLS COUNTED % (AUTO) 100 %; WHITE BLOOD COUNT 6.9 10^3/uL (4.0-10.5)
[2019-01-14 20:56] LABS: ACETAMINOPHEN < 10 ug/mL (10-30); ALBUMIN 3.7 g/dL (3.5-5.0); ALCOHOL < 10 mg/dL (NONE DETECTED); ALKALINE PHOSPHATASE 98 U/L (38-126); ANION GAP 7 (5-19); ASPARTATE AMINO TRANSFERASE 93 U/L (14-36); BILIRUBIN,DIRECT 0.1 mg/dL (0.0-0.4); BILIRUBIN,TOTAL 0.6 mg/dL (0.2-1.3); BLOOD UREA NITROGEN 3 mg/dL (7-20); CALCIUM 9.1 mg/dL (8.4-10.2); CARBON DIOXIDE 30 mmol/L (22-30); CHLORIDE 96 mmol/L (98-107); GLUCOSE 111 mg/dL (75-110); POTASSIUM 3.6 mmol/L (3.6-5.0); SALICYLATE < 1.0 mg/dL (2.0-20.0); TOTAL PROTEIN 6.2 g/dL (6.3-8.2)
--- NOTE | 2019-01-15 09:58 | ER Document Report ---
Doctor's Note Notes: 01/15/19 09:56 Rounds: Chart reviewed and patient interviewed. Patient was brought in as an IVC last night behaving uncontrollably, hallucinating, waving a knife, and had to be sedated pharmacologically with Benadryl, Haldol, and Ativan. At one point she was also put in restraints. This morning, patient is ambulatory without any difficulty, not really pleasant, but cooperative and a bit argumentative. Says that none of what I just related took place. Vital signs are all normal. Lab studies are essentially normal although we do not have a urine on this lady to do drug screening yet. Patient appears to be medically stable for transfer or discharge. Paulina Carr MD 01/15/19 10:06
[2019-01-15 11:19] LABS: APPEARANCE,URINE TURBID; BILIRUBIN,URINE NEGATIVE (NEGATIVE); COLOR,URINE YELLOW; GLUCOSE, URINE NEGATIVE (NEGATIVE); KETONES,URINE NEGATIVE (NEGATIVE); LEUKOCYTE ESTERASE,URINE LARGE (NEGATIVE); NITRITE,URINE NEGATIVE (NEGATIVE); PROTEIN,URINE 30 mg/dL (NEGATIVE); URINE SPECIFIC GRAVITY 1.005; UROBILINOGEN,URINE NEGATIVE mg/dL (<2.0)
[2019-01-15 14:16] LABS: URINE AMPHETAMINES SCREEN NEGATIVE; URINE BARBITURATES SCREEN NEGATIVE; URINE BENZODIAZEPINES SCREEN NEGATIVE; URINE COCAINE SCREEN NEGATIVE; URINE MARIJUANA (THC) SCREEN NEGATIVE; URINE METHADONE SCREEN NEGATIVE; URINE PHENCYCLIDINE SCREEN NEGATIVE
--- NOTE | 2019-01-15 17:33 | EKG REPORT ---
SEVERITY:- BORDERLINE ECG - SINUS RHYTHM BORDERLINE T ABNORMALITIES, ANT-LAT LEADS : Confirmed by: Chuck Riley MD 15-Jan-2019 17:32:59
[2019-01-16] MEDS ORDERED: DIPHENHYDRAMINE HCL 50 MG/ML VIAL IM ONE (03:09)
[2019-01-16] MEDS ORDERED: LORAZEPAM INJ 2 MG/1 ML VIAL IM ONE (03:10)
[2019-01-16] MEDS ORDERED: HALOPERIDOL LACTATE INJ 5 MG/1 ML VIAL IM ONE (03:13)
--- NOTE | 2019-01-16 10:10 | ER Document Report ---
Doctor's Note Notes: 01/16/19 10:09 I have evaluated this pt. this am and she has no c/o at this time. She feels all of her needs are being met and her physical exam is normal. She is awaiting placement per mental health.
--- NOTE | 2019-01-17 15:19 | ER Document Report ---
Doctor's Note Notes: 01/17/19 15:18 Rounds: Chart reviewed and patient interviewed. Patient is confused. I saw her 2 days ago when I was making rounds and she does not recall that and says that I did not see her. Vital signs are all essentially normal. Lab studies were also essentially normal. Patient is calm and cooperative though argumentative. Reviewing the patient's medications, it does not appear she is on any antipsychotic medications. Patient appears to be medically stable for transfer or discharge. Paulina Carr MD
--- NOTE | 2019-01-17 16:55 | PSYCHOLOGICAL NOTE ---
Psych Note - Psych Note Date seen by psych provider: 01/17/19 Psych Note: Presenting Problem: IVC by son, Hx Schizophrenia and noncompliance with medication/treatment, being tested fro dementia, hallucinations, destroyed house, carrying around knife and making SI/HI threats. Patient seen in the ED numerous times for similar etiology. Medication recommendations made by the psychiatric medication provider, Dr. Lydia MD., includes: Add Depakote 250MG twice a day for mood stabilization Impression/Plan: Recommendation to maintain IVC. Medications started today. Consulted with Dr. Carlos regarding the management and care of patient. ED physician in agreement with recommendations.
[2019-01-17] MEDS: DIVALPROEX SODIUM 250 MG TAB.SR.24H PO SCH (17:28)
--- NOTE | 2019-01-18 09:36 | ER Document Report ---
Doctor's Note Notes: 01/18/19 09:35 63-year-old female with history of schizophrenia was supposedly having hallucinations and carrying a knife around the room. Patient was brought in by the police. Awaiting disposition/placement by the psychiatric team.
[2019-01-18] MEDS: DIVALPROEX SODIUM 250 MG TAB.SR.24H PO SCH ×2 (09:37→17:40)
--- NOTE | 2019-01-18 17:34 | PSYCHOLOGICAL NOTE ---
Psych Note - Psych Note Date seen by psych provider: 01/18/19 Psych Note: Impression/Plan: Recommendation to continue IVC. Patient presented with some mood lability and was argumentative with respect to home medications and taking them. Overnight documentation indicated she was up and down all night, talking in her room as of to someone or something and having conversations with herself. Medication was just started yesterday. Consulted with Dr. Carlos regarding the management and care of patient. ED Physician in agreement with recommendations.
[2019-01-19] MEDS: DIVALPROEX SODIUM 250 MG TAB.SR.24H PO SCH ×2 (10:14→18:06)
[2019-01-19 16:11] VITALS: BP 115/60
--- NOTE | 2019-01-19 18:51 | ER Document Report ---
Doctor's Note Notes: 01/19/19 18:51 Patient seen and examined. She has no acute complaints or concerns. She is still exhibiting mood lability per nurses. At this point she is eating and drinking, taking her medications. She remains medically stable, will continue to monitor.
--- NOTE | 2019-01-20 12:23 | PSYCHOLOGICAL NOTE ---
Psych Note - Psych Note Date seen by psych provider: 01/19/19 Psych Note: Reason for Consult: Psychosis Contact Permissions: 63 yr old female presents today by [place] [employer] for complaints of hallucinations while carrying around a knife in the house threatening to kill everybody. Patient is screaming and combative. Has a history of schizophrenia. Check-in with patient. Patient is demonstrating little change in behaviors. Patient still demonstrates mood lability with little insight, judgement or impulse control. Diagnosis: 295.70 (F25.0) Schizoaffective Disorder, Bipolar Type Medication recommendations per [facility]'s contracted psychiatrist Dr. Lydia LUNDBERG are as follows Add Depakote 250MG twice a day for mood stabilization Impression/Plan: Recommendation to continue IVC. Patient continues to present with mood lability with little insight, judgement or impulse control. Patient was accepted to [facility]; transportation was requested Dr. Carlos was consulted and the care and management of this patient; attending physicians in agreement with recommendations and disposition.
--- NOTE | 2019-01-20 12:29 | PSYCHOLOGICAL NOTE ---
Psych Note - Psych Note Date seen by psych provider: 01/15/19 Psych Note: Reason for Consult: Psychosis Contact Permissions: Unable to provide 63 yr old female presents today by [place] [employer] for complaints of hallucinations while carrying around a knife in the house threatening to kill everybody. Patient is observed talking to inanimate objects. Patient believes she will be leaving today at 4 PM. Some difficulty in redirecting. Clinician spoke with patient's son whom the patient lives with. He reports that the patient has progressively gotten worse and is noncompliant on medication. He continued to disclose that she has destroyed the home to include breaking ob jects defecating throughout the home and hanging her closed throughout the home and lining up objects on the floor. He shows clinician pictures of the home to support his report. He discloses that in addition to defecating throughout the home she has been using a bucket in her room and then throwing out the window both toilet paper and her human waste ie urine and feces. He reports that the patient is experiencing both auditory and visual hallucinations. Sometimes she is able to watch TV and other times she is screaming at the television when it is off and has it covered because she believes people are seeing her through it. Diagnosis: 295.70 (F25.0) Schizoaffective Disorder, Bipolar Type Medication recommendations per [facility]'s contracted psychiatrist Dr. Lydia LUNDBERG are as follows Add Depakote 250MG twice a day for mood stabilization Impression/Plan: Recommendation to continue IVC. Patient continues to present with internal stimuli and mood lability with little insight, judgement or impulse control. Dr. Carlos was consulted and the care and management of this patient; attending physicians in agreement with recommendations and disposition.
--- NOTE | 2019-01-20 12:30 | PSYCHOLOGICAL NOTE ---
Psych Note - Psych Note Date seen by psych provider: 01/16/19 Psych Note: Reason for Consult: Psychosis Contact Permissions: 63 yr old female presents today by [place] [employer] for complaints of hallucinations while carrying around a knife in the house threatening to kill everybody. Patient is screaming and combative. Has a history of schizophrenia. Check-in with patient. Patient is demonstrating little change in behaviors. Patient still demonstrates mood lability with little insight, judgement or impulse control. Diagnosis: 295.70 (F25.0) Schizoaffective Disorder, Bipolar Type Medication recommendations per [facility]'s contracted psychiatrist Dr. Lydia LUNDBERG are as follows Add Depakote 250MG twice a day for mood stabilization Impression/Plan: Recommendation to continue IVC. Patient continues to present with mood lability with little insight, judgement or impulse control. Dr. Carlos was consulted and the care and management of this patient; attending physicians in agreement with recommendations and disposition.
== END 2019-01-19 23:47 ==
LOC: ER 19:25
DX: R45.851 Suicidal ideations (principal); R45.6 Violent behavior; R41.0 Disorientation, unspecified; R44.3 Hallucinations, unspecified; Z78.1 Physical restraint status; Z75.1 Person awaiting admission to adequate facility elsewhere; J44.9 Chronic obstructive pulmonary disease, unspecified
CPT/HCPCS: 93005; 36415; 80307 ×4; 85025; 80053; 81001; 93010; J1200 ×2; J1630 ×2; J3490; J2060 ×2; 96374; 96375; 96376; 99285

== ENCOUNTER 2019-03-25 15:20 | Emergency (ER) | payer SELFPAY ==
--- NOTE | 2019-03-25 15:56 | PSYCHOLOGICAL NOTE ---
Psych Note - Psych Note Date seen by psych provider: 03/25/19 Time seen by psych provider: 15:45 Psych Note: Reason For Consult:IVC Consent Permissions:none Patient presented to [facility] ED via [facility] under IVC. Patient noted to be hoarse and yelling at staff and stud beef cattle farmer, "fuck you, you bitch" and "I am going to take you to court". Patient yelled at clinician "fuck you too, I don't have to talk to you either." [facility] states patient was at her house when she was stating she wanted to burn it down and asked the IFS worker when they arrived their address so she (the patient) could burn it down their house also. Mobile harness worker disclosed to clinician the patient destroyed her home, has been punching glass (reportedly has abrasions on her hand), defecating in the home and then walking in it. She disclosed that the patient was released from [facility] on the end of January after 1 month stay (clinician notes patient was sent to [facility] the end of December by the behavioral health team). She reports the patient ripped up her prescriptions and never took any after her discharge from [facility]. Little other history was able to be collected due to patient's presentation i.e. verbal aggression. Diagnosis: 295.70 (F25.0) Schizoaffective Disorder, Bipolar Type per history Medication recommendations per [facility]'s contracted psychiatrist Dr. Lydia LUNDBERG are as follows Thorazine 50mg IM once now Benadryl 50mg IM once now Thorazine 50mg PO every 6 hours Cogentin 1mg PO daily Clonidine 0.1mg 24hours transdermal patch Impression\\plan:Patient is recommended to continue under IVC. This patient is well-known to clinician and department. Chart review conducted and noted that the patient was never seen for mental health concerns prior to May of this year 2018. No head CT or MRI has been conducted. Head CT has been requested as this can help dictate appropriate treatment due to patient's mental health history and age (there is concern there is neurdegenerative processes occurring). Medication recommendations have been provided. Dr. Carlos was consulted to care management of this patient; attending physicians in agreement with recommendations and disposition.
[2019-03-25 16:14] LABS: ABSOLUTE BASOPHILS # (AUTO) 0.1 10^3/uL (0.0-0.2); ABSOLUTE LYMPHOCYTES (AUTO) 0.9 10^3/uL (0.5-4.7); ABSOLUTE MONOCYTES (AUTO) 0.7 10^3/uL (0.1-1.4); ABSOLUTE NEUT (AUTO) 5.8 10^3/uL (1.7-8.2); BASOPHILS % (AUTO) 0.8 % (0-2); EOSINOPHILS % (AUTO) 0.6 % (0-6); HEMATOCRIT 41.4 % (36.0-47.0); HEMOGLOBIN 14.6 g/dL (12.0-15.5); LYMPHOCYTES % (AUTO) 12.5 % (13-45); MEAN CORPUSCULAR HGB CONC 35.3 g/dL (32.0-36.0); MEAN CORPUSCULAR VOLUME 88 fl (80-97); PLATELET COUNT 277 10^3/uL (150-450); RED BLOOD COUNT 4.72 10^6/uL (3.72-5.28); RED CELL DISTRIBUTION WIDTH 13.7 % (11.5-14.0); SEGMENTED NEUTROPHILS % (AUTO) 77.1 % (42-78); TOTAL CELLS COUNTED % (AUTO) 100 %; WHITE BLOOD COUNT 7.5 10^3/uL (4.0-10.5)
[2019-03-25] MEDS ORDERED: CHLORPROMAZINE HCL INJ 25 MG/1 ML AMPULE IM ONE (16:23)
[2019-03-25] MEDS ORDERED: DIPHENHYDRAMINE HCL 50 MG/ML VIAL IM ONE (16:23)
--- NOTE | 2019-03-25 16:29 | ER Document Report ---
ED General - General Chief Complaint: Psych Problem Stated Complaint: PSYCH EVAL Time Seen by Provider: 03/25/19 16:17 TRAVEL OUTSIDE OF THE U.S. IN LAST 30 DAYS: No - HPI Notes: Patient is a 63-year-old female history of schizophrenia who presents on IVC paperwork she has department for destroying her house and breaking glass as well as defecating on the floor and walking through it. Patient is otherwise not very forthcoming with why she is here and has tangential speech. Patient has not been on her medicines recently. Denies drug allergies otherwise. No recent illness. Denies fever, headache, chest pain, shortness of breath, abdominal pain, vomiting/diarrhea, dysuria. - Related Data Allergies/Adverse Reactions: No Known Allergies Allergy (Verified 03/25/19 15:32) Past Medical History - Social History Smoking Status: Unknown if Ever Smoked Family History: Reviewed & Not Pertinent Patient has suicidal ideation: Yes Patient has homicidal ideation: No - Past Medical History Cardiac Medical History: Denies: Hx Coronary Artery Disease, Hx Heart Attack, Hx Hypertension Pulmonary Medical History: Reports: Hx Bronchitis, Hx COPD Denies: Hx Asthma, Hx Pneumonia Neurological Medical History: Denies: Hx Cerebrovascular Accident, Hx Seizures Renal/ Medical History: Denies: Hx Peritoneal Dialysis Musculoskeletal Medical History: Reports Hx Arthritis Psychiatric Medical History: Reports: Hx Schizophrenia Past Surgical History: Reports: Hx Orthopedic Surgery - Immunizations Hx Diphtheria, Pertussis, Tetanus Vaccination: No Review of Systems - Review of Systems -: Yes All other systems reviewed and negative Physical Exam - Notes Notes: PHYSICAL EXAMINATION: GENERAL: Well-appearing, well-nourished and in no acute distress. HEAD: Atraumatic, normocephalic. EYES: Pupils equal round and reactive to light, extraocular movements intact, sclera anicteric, conjunctiva are normal. ENT: Nares patent and without discharge. oropharynx clear without exudates. No tonsilar hypertrophy or erythema. Moist mucous membranes. NECK: Normal range of motion, supple without lymphadenopathy LUNGS: Breath sounds clear to auscultation bilaterally and equal. No wheezes rales or rhonchi. HEART: Regular rate and rhythm without murmurs, rubs, gallops. ABDOMEN: Soft, nontender, nondistended abdomen. No guarding, no rebound. Normal bowel sounds present. No CVA tenderness bilaterally. Musculoskeletal: FROM to passive/active. Strength 5+/5. Extremities: No cyanosis, clubbing, or edema b/l. Peripheral pulses 2+. Capillary refill less than 3 seconds. NEUROLOGICAL: Cranial nerves grossly intact. PSYCH: tangential speech, shouting, cussing at almost everyone SKIN: Warm, Dry, normal turgor, no rashes or lesions noted. Course - Re-evaluation Re-evalutation: 03/25/19 19:03 Patient is an afebrile, well-hydrated, 63-year-old female who presents for mood disorder on IVC papers. Vitals are acceptable. PE is otherwise unremarkable. Patient is nontoxic-appearing and is tolerating p.o. without difficulty. Labs and imaging unremarkable at this time. Patient is medically cleared for evaluation by her mental health team. Medicine recommendations have been provided by the mental health team. - Laboratory Result Diagrams: 03/25/19 16:00 03/25/19 16:00 Laboratory results interpreted by me: 03/25/19 03/25/19 16:00 16:00 Lymph % (Auto) 12.5 L Sodium 131.9 L Creatinine 0.42 L Alkaline Phosphatase 133 H Salicylates < 1.0 L Acetaminophen < 10 L Discharge - Discharge Clinical Impression: Mood disorder Schizophrenia Qualifiers: Schizophrenia type: unspecified Qualified Code(s): F20.9 - Schizophrenia, unspecified Condition: Stable Disposition: PSYCH HOSP/UNIT
[2019-03-25 16:32] LABS: ALBUMIN 4.1 g/dL (3.5-5.0); ALKALINE PHOSPHATASE 133 U/L (38-126); ANION GAP 9 (5-19); ASPARTATE AMINO TRANSFERASE 29 U/L (14-36); BILIRUBIN,DIRECT 0.1 mg/dL (0.0-0.4); BILIRUBIN,TOTAL 0.5 mg/dL (0.2-1.3); BLOOD UREA NITROGEN 12 mg/dL (7-20); CALCIUM 9.1 mg/dL (8.4-10.2); CARBON DIOXIDE 25 mmol/L (22-30); CHLORIDE 98 mmol/L (98-107); GLUCOSE 109 mg/dL (75-110); TOTAL PROTEIN 7.1 g/dL (6.3-8.2)
[2019-03-25 16:48] LABS: ACETAMINOPHEN < 10 ug/mL (10-30); ALCOHOL < 10 mg/dL (NONE DETECTED); SALICYLATE < 1.0 mg/dL (2.0-20.0)
--- NOTE | 2019-03-25 18:49 | RADIOLOGY REPORT (SQ) ---
EXAM DESCRIPTION: CT HEAD WITHOUT COMPLETED DATE/TIME: 03/25/2019 6:39 pm REASON FOR STUDY: AMS COMPARISON: None. TECHNIQUE: Axial images acquired through the brain without intravenous contrast. Images reviewed wi th bone, brain and subdural windows. Additional sagittal and coronal reconstructions were generated. Images stored on PACS. All CT scanners at this facility use dose modulation, iterative reconstruction, and/or weight based d osing when appropriate to reduce radiation dose to as low as reasonably achievable (ALARA). [facility]: Dose Right [facility]: CareDose [facility]: Dose Right [facility]: Teradose 4D [facility]: Hostmonster RADIATION DOSE: CT Rad equipment meets quality standard of care and radiation dose reduction techniq ues were employed. CTDIvol: 53.2 mGy. DLP: 911 mGy-cm. mGy. LIMITATIONS: Patient motion artifact FINDINGS: VENTRICLES: Normal size and contour. CEREBRUM: No masses. No hemorrhage. No midline shift. No evidence for acute infarction. Normal gra y/white matter differentiation. No areas of low density in the white matter. CEREBELLUM: No masses. No hemorrhage. No alteration of density. No evidence for acute infarction. EXTRAAXIAL SPACES: No fluid collections. No masses. ORBITS AND GLOBE: No intra- or extraconal masses. Normal contour of globe without masses. CALVARIUM: No fracture. PARANASAL SINUSES: No fluid or mucosal thickening. SOFT TISSUES: No mass or hematoma. OTHER: No other significant finding. IMPRESSION: NO ACUTE INTRACRANIAL IMAGING FINDINGS. EVIDENCE OF ACUTE STROKE: NO. COMMENT: Quality ID # [id number]: Final reports with documentation of one or more dose reduction techniques (e.g., Automated exposure control, adjustment of the mA and/or kV according to patient size, use of iterative reconstruction technique) TECHNICAL DOCUMENTATION: JOB ID: [id number] [employer]- All Rights Reserved Reading location - IP/workstation name: [email or web address]
[2019-03-25] MEDS: CLONIDINE 0.1 MG/24 HR PATCH.TDWK TD SCH (19:12)
[2019-03-25] MEDS ORDERED: HALOPERIDOL LACTATE INJ 5 MG/1 ML VIAL IM ONE (22:45)
[2019-03-25] MEDS: CHLORPROMAZINE HCL 50 MG TABLET PO SCH (23:12)
[2019-03-26] MEDS: CHLORPROMAZINE HCL 50 MG TABLET PO SCH ×5 (06:16→23:34)
[2019-03-26] MEDS: BENZTROPINE MESYLATE 1 MG TABLET PO SCH ×2 (09:12→11:27)
[2019-03-26] MEDS: CLONIDINE 0.1 MG/24 HR PATCH.TDWK TD SCH (10:57)
--- NOTE | 2019-03-26 11:09 | PSYCHOLOGICAL NOTE ---
Psych Note - Psych Note Date seen by psych provider: 03/26/19 Time seen by psych provider: 09:00 Psych Note: Reason For Consult:IVC Consent Permissions:none Patient reportedly slept through the evening; however, was behavioral late last night. Clinician notes that patient's medication recommendations was not used and she was given Haldol 3mg at the time she would have gotten the Thorazine. She did not receive the scheduled recommendation of Thorazine this morning at 6am. The patient is currently sitting in her room but does engage in verbal aggression with staff at times. Head CT 03/25/2019 No findings Diagnosis: 295.70 (F25.0) Schizoaffective Disorder, Bipolar Type per history Medication recommendations per [facility]'s contracted psychiatrist Dr. Lydia LUNDBERG are as follows Thorazine 50mg IM once now Benadryl 50mg IM once now Thorazine 50mg PO every 6 hours Cogentin 1mg PO daily Clonidine 0.1mg 24hours transdermal patch Impression\plan:Patient is recommended to continue under IVC. This patient is well-known to clinician and department. Patient's Head CT indicated there was no findings. Patient continues to engage in verbal aggression and demonstrates no insight or understanding of her current situation. Medication recommendations have been provided. Patient will be re-evaluated. Dr. Carlos was consulted to care management of this patient; attending physicians in agreement with recommendations and disposition.
[2019-03-26] MEDS ORDERED: CHLORPROMAZINE HCL INJ 25 MG/1 ML AMPULE IM ONE ×2 (11:12→23:32)
--- NOTE | 2019-03-26 11:15 | ER Document Report ---
Doctor's Note Notes: 03/26/19 11:07 Patient is a 63-year-old female that I am rounding on this morning who is brought in 2 days ago for acute psychosis in the setting of schizophrenia. Patient has continued to have irritability and cussing at staff members. Her speech is tangential and she does not answer questions appropriately otherwise. Labs and imaging have been unremarkable. Medicine recommendations have been made and were ordered by myself yesterday, but she did not get her scheduled medicines throughout the night. She is otherwise able to eat and drink without difficulty. She is urinating normally and having normal bowel movements. Denies any headache, fever, chest pain, cough, shortness of breath, wheeze, dyspnea, abdominal pain, nausea/vomiting/diarrhea. General: Pt appears comfortable, but irritated. Tangential speech. Heart: RRR Lungs: CTAB Psych: Irritable. does appear to be in acute psychosis. A/P: Continue monitoring and med rec's per . Waiting on further rec's from MH team, but plan is to find placement at this time. Normal diet 03/26/19 11:15 Pt began spitting and threw her medicine at the nurse and cussing. IM thorazine ordered.
--- NOTE | 2019-03-26 12:05 | EKG REPORT ---
SEVERITY:- NORMAL ECG - SINUS RHYTHM NONSPECIFIC ST-T CHANGES : Confirmed by: Bill Robles 26-Mar-2019 12:04:20
[2019-03-27] MEDS: CHLORPROMAZINE HCL 50 MG TABLET PO SCH ×2 (05:06→11:44)
[2019-03-27 06:12] LABS: APPEARANCE,URINE CLOUDY; BILIRUBIN,URINE NEGATIVE (NEGATIVE); GLUCOSE, URINE NEGATIVE (NEGATIVE); KETONES,URINE 20 mg/dL (NEGATIVE); LEUKOCYTE ESTERASE,URINE MODERATE (NEGATIVE); NITRITE,URINE NEGATIVE (NEGATIVE); PROTEIN,URINE 100 mg/dL (NEGATIVE); URINE SPECIFIC GRAVITY 1.023; UROBILINOGEN,URINE NEGATIVE mg/dL (<2.0)
[2019-03-27 06:13] LABS: COLOR,URINE YELLOW
[2019-03-27 06:25] LABS: URINE AMPHETAMINES SCREEN NEGATIVE; URINE BARBITURATES SCREEN NEGATIVE; URINE BENZODIAZEPINES SCREEN NEGATIVE; URINE COCAINE SCREEN NEGATIVE; URINE MARIJUANA (THC) SCREEN NEGATIVE; URINE METHADONE SCREEN NEGATIVE; URINE PHENCYCLIDINE SCREEN NEGATIVE
[2019-03-27] MEDS ORDERED: CEPHALEXIN 500 MG CAPSULE PO ONE (07:10)
--- NOTE | 2019-03-27 07:12 | ER Document Report ---
Doctor's Note Notes: 03/27/19 07:11 Nurse reported that patient provided a urine sample. It did have 48 WBCs and appeared to be an contaminated sample. I have sent the urine for culture. Plan is to treat with Keflex. First dose will be given now and I have scheduled it every 12 for next dose at 8 PM tonight. Also, patient's sodium 131.9 but patient does have chronic hyponatremia.
--- NOTE | 2019-03-27 09:15 | PSYCHOLOGICAL NOTE ---
Psych Note - Psych Note Date seen by psych provider: 03/27/19 Time seen by psych provider: 06:45 Psych Note: Reason For Consult:IVC Consent Permissions:none Patient was observed talking to herself prior to evaluation. Patient states she is "good" and is requesting discharge. Patient is difficult to understand to due mumbled, pressured speech. Patient is calm but generally uncooperative. Patient would not engage with clinician when asked about her current situation (condition of the home; property damage; etc). Nacho from [facility] will meet with patient today. Clinician is aware patient is refusing PO medications. Clinician is following up for adjustments in medications. Please be advised: patient under IVC cannot refuse medications. Diagnosis: 295.70 (F25.0) Schizoaffective Disorder, Bipolar Type per history Medication recommendations per [facility]'s contracted psychiatrist Dr. Lydia LUNDBERG are as follows Thorazine 50mg IM every 6 hours Cogentin 1mg IM daily Clonidine 0.1mg 24hours transdermal patch Impression\\plan:Patient is recommended to continue under IVC. Per report, patient is well-known behavioral health team. Patient's head CT indicated there was no findings. Patient demonstrates no insight or understanding of her current situation. Medication recommendations have been provided. Patient will be re-evaluated. Placement efforts are ongoing. [facility] offered placement at an out of pocket cost of $1800/per day. Dr. Carlos was consulted to care management of this patient; attending physicians in agreement with recommendations and disposition.
[2019-03-27] MEDS ORDERED: CHLORPROMAZINE HCL INJ 25 MG/1 ML AMPULE IM ONE (09:37)
[2019-03-27] MEDS ORDERED: BENZTROPINE MESYLATE INJ 2 MG/2 ML AMPULE IM ONE (09:38)
--- NOTE | 2019-03-27 09:40 | ER Document Report ---
Doctor's Note Notes: 03/27/19 09:39 aquaculture worker states pt is refusing medication this morning. Requests medications to be given IM. Pt's medication list reviewed. Pt is on Cogentin 1 mg PO and thorazine 50 mg PO. IM medications ordered. Pt is also on Keflex for UTI. Informed RN to given IM psych meds first and then once pt is cooperative pt may be given Keflex. 03/27/19 12:55 Pt continuing to refuse her Keflex. Will switch to Fosfomycin 3 gm one dose. Pharmacy called for instructions to order. Awaiting callback from pharmacist. 03/27/19 13:21 Pharmacy called back with instructions to order fosfomycin 3 gm. 03/27/19 14:29 Psychiatric recommendations to change medication to IM doses - thorazine 50 mg IM q6hrs, cogentin 1 mg IM daily, and clonidine 0.1 mg IM BID. Clonidine is only available in mcg dose. Converted 0.1 mg to mcg= 100 mcg. 03/27/19 14:35 Pt took fosfomycin and poured it down the sink. 03/27/19 14:56 Ordered rocephin 1 gm IM daily for 1 week. Pt evaluated. Pt is not cooperative. Vital signs reassuring.
[2019-03-27] MEDS ORDERED: CEPHALEXIN 500 MG CAPSULE PO SCH ×2 (11:15→20:00)
[2019-03-27] MEDS: CLONIDINE 0.1 MG/24 HR PATCH.TDWK TD SCH (11:43)
[2019-03-27] MEDS: BENZTROPINE MESYLATE 1 MG TABLET PO SCH (11:43)
[2019-03-27] MEDS ORDERED: CHLORPROMAZINE HCL 50 MG TABLET PO SCH (12:00)
[2019-03-27] MEDS ORDERED: FOSFOMYCIN TROMETHAMINE 3 GM PACKET PO ONE (13:21)
[2019-03-27] MEDS: BENZTROPINE MESYLATE INJ 2 MG/2 ML AMPULE IM SCH (15:51)
[2019-03-27] MEDS: CEFTRIAXONE INJ 1000 MG VIAL IM SCH (15:52)
[2019-03-27] MEDS: LIDOCAINE 1% INJ (10 MG/ML) 10 ML MDV INJ SCH (15:52)
[2019-03-27] MEDS: CHLORPROMAZINE HCL INJ 25 MG/1 ML AMPULE IM SCH (18:21)
[2019-03-27] MEDS: CLONIDINE HCL INJ/PF 1000 MCG/10 ML SDV INJ SCH (19:09)
[2019-03-28] MEDS: CHLORPROMAZINE HCL INJ 25 MG/1 ML AMPULE IM SCH ×4 (00:10→17:55)
[2019-03-28] MEDS: CEFTRIAXONE INJ 1000 MG VIAL IM SCH (09:50)
[2019-03-28] MEDS: LIDOCAINE 1% INJ (10 MG/ML) 10 ML MDV INJ SCH (09:51)
[2019-03-28] MEDS: BENZTROPINE MESYLATE INJ 2 MG/2 ML AMPULE IM SCH (09:52)
[2019-03-28] MEDS: CLONIDINE HCL INJ/PF 1000 MCG/10 ML SDV INJ SCH ×2 (09:52→17:55)
--- NOTE | 2019-03-28 11:54 | PSYCHOLOGICAL NOTE ---
Psych Note - Psych Note Date seen by psych provider: 03/28/19 Time seen by psych provider: 08:15 Psych Note: Reason For Consult:IVC Consent Permissions:none There is no change in patient's circumstance. Clinician observed patient engaging in behavior that is suggestive of engagement with internal stimuli. Patient is difficult to understand to due to mumbled, pressured speech. Patient is somewhat calm and generally uncooperative. Patient would not engage with clinician today. Please be advised: patient under IVC cannot refuse medications. Diagnosis: 295.70 (F25.0) Schizoaffective Disorder, Bipolar Type per history Medication recommendations per [facility]'s contracted psychiatrist Dr. Lydia LUNDBERG are as follows UPDATED Discontinue Thorazine 50mg IM every 6 hours Continue Cogentin 1mg IM daily Change Clonidine 0.1mg IM at bedtime Add Haldol 5MG, every 6 hours Last dose of Throazine was 17:55 on 03/28/2019. Please check patient's vitals before giving dose of Haldol. Impression\plan:Patient is recommended to continue under IVC. Per report, patient is well-known behavioral health team. Patient's head CT indicated there was no findings. Patient demonstrates no insight or understanding of her current situation. Medication recommendations have been provided. Patient will be re-evaluated. Placement efforts are ongoing. As of this time, patient has not been accept for placement. Dr. Carlos was consulted to care management of this patient; attending physicians in agreement with recommendations and disposition.
--- NOTE | 2019-03-28 14:18 | ER Document Report ---
Doctor's Note Notes: 03/28/19 18:12 Patient's vital signs and previous labs, diagnostic images reviewed. Reviewed mental health notes, nurse's notes and previous providers notes. VSS. Pt is in no distress at this time. Denies any SI or HI. ate lunch without any issues, ate dinner without any issues General: A&Ox3. Answers questions appropriately. Heart: RRR Lungs: CTAB Psych: Flat affect, hostile and agitated but can be calmed somewhat with conversation A/P: Continue monitoring and rec's per MH. Normal diet Consider placement.
[2019-03-28] MEDS ORDERED: HALOPERIDOL LACTATE INJ 5 MG/1 ML VIAL IV SCH (18:54)
[2019-03-28] MEDS ORDERED: DIPHENHYDRAMINE HCL 50 MG/ML VIAL IM ONE (19:53)
[2019-03-28] MEDS: HALOPERIDOL LACTATE INJ 5 MG/1 ML VIAL IM SCH (20:17)
[2019-03-29] MEDS ORDERED: DISPOSABLE SUBCUT ONE ×3 (08:30)
[2019-03-29] MEDS ORDERED: OMALIZUMAB SUBCUT ONE ×3 (08:30)
[2019-03-29] MEDS: HALOPERIDOL LACTATE INJ 5 MG/1 ML VIAL IM SCH ×2 (10:31→18:22)
[2019-03-29] MEDS: LIDOCAINE 1% INJ (10 MG/ML) 10 ML MDV INJ SCH (10:32)
[2019-03-29] MEDS: CEFTRIAXONE INJ 1000 MG VIAL IM SCH (10:33)
[2019-03-29] MEDS: BENZTROPINE MESYLATE INJ 2 MG/2 ML AMPULE IM SCH (10:34)
--- NOTE | 2019-03-29 20:43 | ER Document Report ---
Doctor's Note Notes: 03/29/19 19:30 PHYSICAL EXAMINATION: GENERAL: Well-appearing and in no acute distress. HEAD: Atraumatic, normocephalic. EYES: sclera anicteric, conjunctiva are normal. ENT: nares patent. Moist mucous membranes. NECK: Normal LUNGS: Suppressions unlabored HEART: Regular rate ABDOMEN: Soft, nontender EXTREMITIES: Normal range of motion, no pitting edema. No cyanosis. BACK: No CVA tenderness NEUROLOGICAL: Cranial nerves grossly intact. Normal speech. Normal gait. PSYCH: Tangential speech, patient easily agitated through conversation although able to be redirected somewhat SKIN: Warm, Dry, normal turgor, no rashes or lesions noted Patient is awaiting placement at this time. Patient continues to refuse oral m edications. Patient has received IM Rocephin injections for UTI. Attempting to obtain a new urine specimen to confirm resolution of UTI. Staff encouraged to obtain urinalysis specimen. Patient without any symptoms worrisome for sepsis at this time
[2019-03-29] MEDS: CLONIDINE HCL INJ/PF 1000 MCG/10 ML SDV INJ SCH (22:06)
[2019-03-30] MEDS: HALOPERIDOL LACTATE INJ 5 MG/1 ML VIAL IM SCH ×2 (10:30→18:43)
[2019-03-30] MEDS: BENZTROPINE MESYLATE INJ 2 MG/2 ML AMPULE IM SCH (10:37)
[2019-03-30] MEDS: LIDOCAINE 1% INJ (10 MG/ML) 10 ML MDV INJ SCH (10:38)
[2019-03-30] MEDS: CEFTRIAXONE INJ 1000 MG VIAL IM SCH (10:38)
--- NOTE | 2019-03-30 13:25 | PSYCHOLOGICAL NOTE ---
Psych Note - Psych Note Date seen by psych provider: 03/29/19 Time seen by psych provider: 09:30 Psych Note: Reason for Consult: IVC Consent Permissions:none There has been little change in patient's presentation. She continues to come out of her room to yell at staff. Patient can be heard having conversations with her hallucinations. Diagnosis: 295.70 (F25.0) Schizoaffective Disorder, Bipolar Type per history Medication recommendations per [facility]'s contracted psychiatrist Dr. Lydia LUNDBERG are as follows Continue Cogentin 1mg IM daily Continue Clonidine 0.1mg IM at bedtime Continue Haldol 5MG, every 6 hours Impression\plan:Patient is recommended to continue under IVC. This patient is well-known to clinician and department. Patient's Head CT indicated there was no findings. Patient continues to engage in verbal aggression and demonstrates no insight or understanding of her current situation. Medication recommendations have been provided. Patient will be re-evaluated. Dr. Carlos was consulted to care management of this patient; attending physicians in agreement with recommendations and disposition.
--- NOTE | 2019-03-30 13:33 | PSYCHOLOGICAL NOTE ---
Psych Note - Psych Note Date seen by psych provider: 03/30/19 Time seen by psych provider: 09:30 Psych Note: Reason for Consult: IVC Consent Permissions:none There has been little change in patient's presentation. Patient can be heard having conversations with her hallucinations. Patient's bed been removed because she continues to fall asleep in the metal chair and there was concern she would fall so she now has a lounge chair for her to sit and sleep in. Patient is resistant to taking antipsychotic medications but has sat still for today's nurse and not fought against IM administration of medications. Diagnosis: 295.70 (F25.0) Schizoaffective Disorder, Bipolar Type per history Medication recommendations per [facility]'s contracted psychiatrist Dr. Lydia LUNDBERG are as follows Continue Cogentin 1mg IM daily Continue Clonidine 0.1mg IM at bedtime Continue Haldol 5MG, every 6 hours Impression\plan:Patient is recommended to continue under IVC. This patient is well-known to clinician and department. Patient's Head CT indicated there was no findings. Patient continues to engage in verbal aggression and demonstrates no insight or understanding of her current situation. Medication recommendations have been provided. Patient will be re-evaluated. Dr. Carlos was consulted to care management of this patient; attending physicians in agreement with recommendations and disposition.
--- NOTE | 2019-03-30 19:48 | ER Document Report ---
Doctor's Note Notes: 03/30/19 09:00 Chart reviewed patient rounded on Patient sitting up in a recliner. She is argumentative with the nurse. Nurse was requesting to take her blood pressure she is yelling that she doesn't want her blood pressure taken and about different things that do not make sense. Security was called for nurse to obtain blood pressure. Patient comes down when nobody bothers her. She sat in a recliner all day with no further arguments. She did get in to debate with the patient across the brown. The patient across t he brown was yelling at her and she informed that patient to sit down to tell her what to do. PHYSICAL EXAMINATION: GENERAL: Well-appearing and in no acute distress HEAD: Atraumatic, normocephalic. EYES: extraocular movements intact, sclera anicteric, conjunctiva are normal. ENT: nares patent, . Moist mucous membranes. NECK: Normal range of motion, supple LUNGS: Respiratory rate even unlabored HEART: Regular rate ABDOMEN: Soft, no tenderness. Denies pain EXTREMITIES: Normal range of motion, no pitting edema. . NEUROLOGICAL: Cranial nerves grossly intact. PSYCH: Normal mood, normal affect. Patient is calm when she is left alone SKIN: Warm, Dry, normal turgor, no rashes or lesions noted 03/30/19 20:08 Report given to MICHELLE Banegas. Patient calm.
[2019-03-30 20:26] VITALS: BP 112/68
[2019-03-30] MEDS: CLONIDINE HCL INJ/PF 1000 MCG/10 ML SDV INJ SCH (22:06)
[2019-03-31 07:19] LABS: APPEARANCE,URINE CLEAR; BILIRUBIN,URINE NEGATIVE (NEGATIVE); COLOR,URINE YELLOW; GLUCOSE, URINE NEGATIVE (NEGATIVE); KETONES,URINE NEGATIVE (NEGATIVE); LEUKOCYTE ESTERASE,URINE NEGATIVE (NEGATIVE); NITRITE,URINE NEGATIVE (NEGATIVE); PROTEIN,URINE NEGATIVE (NEGATIVE); URINE SPECIFIC GRAVITY 1.005; UROBILINOGEN,URINE NEGATIVE mg/dL (<2.0)
[2019-03-31] MEDS: CEFTRIAXONE INJ 1000 MG VIAL IM SCH (10:40)
[2019-03-31] MEDS: HALOPERIDOL LACTATE INJ 5 MG/1 ML VIAL IM SCH ×2 (10:41→18:09)
[2019-03-31] MEDS: BENZTROPINE MESYLATE INJ 2 MG/2 ML AMPULE IM SCH (10:41)
[2019-03-31] MEDS: LIDOCAINE 1% INJ (10 MG/ML) 10 ML MDV INJ SCH (10:41)
--- NOTE | 2019-03-31 13:20 | ER Document Report ---
Doctor's Note Notes: 03/31/19 12:15 PHYSICAL EXAMINATION: GENERAL: Well-appearing and in no acute distress. HEAD: Atraumatic, normocephalic. EYES: sclera anicteric, conjunctiva are normal. ENT: nares patent. Moist mucous membranes. NECK: Normal range of motion, supple without lymphadenopathy LUNGS: CTAB and equal. No wheezes rales or rhonchi. HEART: Regular rate and rhythm without murmurs EXTREMITIES: Normal range of motion, no pitting edema. No cyanosis. BACK: No midline tenderness, no step-off or deformity. No CVA tenderness NEUROLOGICAL: Cranial nerves grossly intact. PSYCH: Patient continues with tangential speech and occasional hallucinations SKIN: Warm, Dry, normal turgor, no rashes or lesions noted Patient's diagnostic evaluation reviewed. Patient's urinalysis has resolved and Rocephin order has been canceled at this time. Patient is medically clear for transfer at this time. She is still awaiting placement at this time. 03/31/19 17:27 Mental health team feels that patient is at her baseline and stable for discharge at this time. Patient without any suicidal homicidal ideation. Patient son is agreeable with discharge plan of care and plans to take patient home. 03/31/19 18:05 Patient was given a dose of Haldol decanoate 200 mg IM one-time dose. Due to this I will not be writing the prescription for Haldol 5 mg twice a day per the provider recommendations at this time. Patient will be encouraged to follow-up with primary doctor for further management
--- NOTE | 2019-03-31 16:46 | PSYCHOLOGICAL NOTE ---
Psych Note - Psych Note Date seen by psych provider: 03/31/19 Time seen by psych provider: 16:15 Psych Note: Reason for Consult: IVC Consent Permissions:none Clinician was able to have collaborative conversation with patient. Patient was calm and cooperative. Patient stated she "cussed and raised my voice" in response to the nurses. Patient states she lives with son but "I'm the boss." Patient states she will continue to take the Cogentin. Patient requests dischar radha. Contact was made with patient's son regarding discharge. Diagnosis: 295.70 (F25.0) Schizoaffective Disorder, Bipolar Type per history Medication recommendations per [facility]'s contracted psychiatrist Dr. Lydia LUNDBERG are as follows Continue Cogentin 1mg IM daily Continue Clonidine 0.1mg IM at bedtime Continue Haldol 5MG, every 6 hours Impression\\plan:Patient is recommended to continue under IVC. Patient is cleared from acute psychiatric services. Patient does not meet IVC criteria per ID GS 122C. It is recommended that IVC be rescinded. This patient is well-known to clinician and department. Patient's Head CT indicated there was no findings. Patient has been in the ED since 03/25/2019. Patient is believed to be therapeutic on medications and at her cognitive baseline. Plan is for patient to be discharged to her home. Patient's son, Tyler, has been contacted regarding discharge. Patient's son states he is at work and is unable to assist with transportation. [facility] is monitoring patient's progress. [facility] has been contacted to coordinate transportation and follow up care. Patient's son has agreed to be involved in patient's plan of care. Dr. Carlos was consulted to care management of this patient; attending physicians in agreement with recommendations and disposition.
[2019-03-31] MEDS ORDERED: HALOPERIDOL DECANOATE INJ 100 MG/1 ML VIAL IM ONE (17:12)
== END 2019-03-31 18:21 | disposition home or self-care (01) ==
LOC: ER 15:20
DX: F20.9 Schizophrenia, unspecified (principal); F39 Unspecified mood [affective] disorder; Z91.14 Patient's other noncompliance with medication regimen
CPT/HCPCS: 93005; 99285; 96372; 36415; 87086; 80307 ×4; 85025; 87088; 80053; 81001; 70450; 93010; J0515 ×5; J3230 ×4; J3490 ×4; J1631; J1200 ×2; J1630 ×5; J0735 ×3; J0696 ×5

== ENCOUNTER 2019-04-21 19:39 | Emergency (ER) | payer SELFPAY ==
[2019-04-21 20:37] LABS: ABSOLUTE BASOPHILS # (AUTO) 0.1 10^3/uL (0.0-0.2); ABSOLUTE EOSINOPHILS # (AUTO) 0.2 10^3/uL (0.0-0.6); ABSOLUTE LYMPHOCYTES (AUTO) 3.4 10^3/uL (0.5-4.7); ABSOLUTE MONOCYTES (AUTO) 1.2 10^3/uL (0.1-1.4); BASOPHILS % (AUTO) 0.7 % (0-2); HEMATOCRIT 39.5 % (36.0-47.0); HEMOGLOBIN 13.6 g/dL (12.0-15.5); LYMPHOCYTES % (AUTO) 38.6 % (13-45); MEAN CORPUSCULAR HEMOGLOBIN 30.3 pg (27.0-33.4); MEAN CORPUSCULAR HGB CONC 34.5 g/dL (32.0-36.0); MEAN CORPUSCULAR VOLUME 88 fl (80-97); MONOCYTES % (AUTO) 13.8 % (3-13); PLATELET COUNT 352 10^3/uL (150-450); RED CELL DISTRIBUTION WIDTH 14.2 % (11.5-14.0); SEGMENTED NEUTROPHILS % (AUTO) 44.9 % (42-78); TOTAL CELLS COUNTED % (AUTO) 100 %; WHITE BLOOD COUNT 8.9 10^3/uL (4.0-10.5)
[2019-04-21 20:40] LABS: ALBUMIN 4.3 g/dL (3.5-5.0); ALKALINE PHOSPHATASE 103 U/L (38-126); ANION GAP 12 (5-19); ASPARTATE AMINO TRANSFERASE 28 U/L (14-36); BILIRUBIN,DIRECT 0.2 mg/dL (0.0-0.4); BILIRUBIN,TOTAL 0.7 mg/dL (0.2-1.3); BLOOD UREA NITROGEN 7 mg/dL (7-20); CALCIUM 9.5 mg/dL (8.4-10.2); CARBON DIOXIDE 27 mmol/L (22-30); CHLORIDE 95 mmol/L (98-107); GLUCOSE 116 mg/dL (75-110); POTASSIUM 4.1 mmol/L (3.6-5.0); TOTAL PROTEIN 7.5 g/dL (6.3-8.2)
[2019-04-21 20:42] LABS: ACETAMINOPHEN < 10 ug/mL (10-30); ALCOHOL < 10 mg/dL (NONE DETECTED); SALICYLATE < 1.0 mg/dL (2.0-20.0)
--- NOTE | 2019-04-21 23:43 | ER Document Report ---
ED Psych Disorder / Suicide - General Chief Complaint: Psych Problem Stated Complaint: PSYCH Time Seen by Provider: 04/21/19 23:01 Notes: Patient is a 63-year-old female with a history of schizophrenia that is well- known to this facility that comes emergency department for EMS after her son called them for her abnormal behavior. She has IVC paperwork already completed. Reportedly patient was throwing glass objects to break them and was throwing feces at her son so he called EMS. IVC paperwork also states that patient was threatening to burn down the house, breaking the mirrors because she sees demons in them, and hearing voices. Patient denies that she is taking any medications, she states she "does not need them". She does state that she knows she is in the hospital, she denies SI or HI, she denies hearing voices. It is difficult to get any other history of the patient, patient keeps yelling "leave me alone". Patient is also nonsensical, repeatedly asking if she can "have children without a man". History very limited because of patient's current condition. Apparently patient was very combative and difficult with EMS and she was given IM ketamine prior to arrival. TRAVEL OUTSIDE OF THE [place] IN LAST 30 DAYS: No - Related Data Allergies/Adverse Reactions: No Known Allergies Allergy (Verified 03/25/19 15:32) Past Medical History - General Information source: Patient - Social History Smoking Status: Current Every Day Smoker Frequency of alcohol use: None Drug Abuse: None Lives with: Family Family History: Reviewed & Not Pertinent Patient has suicidal ideation: No - unable to assess d/t pt condition Patient has homicidal ideation: No - unable to assess td/t pt's condition - Past Medical History Cardiac Medical History: Denies: Hx Coronary Artery Disease, Hx Heart Attack, Hx Hypertension Pulmonary Medical History: Reports: Hx Bronchitis, Hx COPD Denies: Hx Asthma, Hx Pneumonia Neurological Medical History: Denies: Hx Cerebrovascular Accident, Hx Seizures Renal/ Medical History: Denies: Hx Peritoneal Dialysis Musculoskeletal Medical History: Reports Hx Arthritis Psychiatric Medical History: Reports: Hx Schizophrenia Past Surgical History: Reports: Hx Orthopedic Surgery - Immunizations Hx Diphtheria, Pertussis, Tetanus Vaccination: No Review of Systems - Review of Systems Constitutional: No symptoms reported EENT: No symptoms reported Cardiovascular: No symptoms reported Respiratory: No symptoms reported Gastrointestinal: No symptoms reported Genitourinary: No symptoms reported Female Genitourinary: No symptoms reported Musculoskeletal: No symptoms reported Skin: No symptoms reported Hematologic/Lymphatic: No symptoms reported Neurological/Psychological: See HPI Physical Exam - Vital signs Vitals: Temp Pulse Resp BP Pulse Ox 98.0 F 97 21 H 121/67 96 04/21/19 19:44 04/21/19 19:44 04/21/19 19:44 04/21/19 19:44 04/21/19 19:44 - Notes Notes: GENERAL: Frail appearing. Awake and responsive HEAD: Normocephalic, atraumatic. EYES: Pupils equal, round, and reactive to light. Extraocular movements intact. ENT: Oral mucosa moist, tongue midline. Oropharynx unremarkable. Airway patent. NECK: Full range of motion. Supple. Trachea midline. LUNGS: Clear to auscultation bilaterally, no wheezes, rales, or rhonchi. No respiratory distress. HEART: Regular rate and rhythm. No murmur ABDOMEN: Soft, non-tender. Non-distended. Bowel sounds present in all 4 quadrants. GENITOURINARY: Deferred EXTREMITIES: Moves all 4 extremities spontaneously. No edema, normal radial and dorsalis pedis pulses bilaterally. No cyanosis. BACK: no cervical, thoracic, lumbar midline tenderness. No saddle anesthesia, normal distal neurovascular exam. Moves all extremities in full range of motion. NEUROLOGICAL: Alert and oriented x3. Normal speech. Cranial nerves II through XII grossly intact. PSYCH: Bizarre and random behavior and statements, poor eye contact SKIN: Warm, dry, normal turgor. No rashes or lesions noted. Course - Re-evaluation Re-evalutation: Patient is already on IVC paperwork. She is bizarre but cooperative on my evaluation. When left alone she is actually calm but awake. CBC unremarkable, chemistry unremarkable, initial screen is unremarkable. Urinalysis and drug screen are still pending for medical clearance. EKG unremarkable. Vital signs unremarkable. Regardless of urinalysis patient will still be medically cleared pending mental health team evaluation. - Vital Signs Vital signs: Temp Pulse Resp BP Pulse Ox 97.6 F 86 21 H 119/84 97 04/22/19 05:54 04/22/19 05:54 04/21/19 19:44 04/22/19 05:54 04/22/19 05:54 - Laboratory Result Diagrams: 04/21/19 19:20 04/21/19 19:20 Laboratory results interpreted by me: 04/21/19 04/21/19 19:20 19:20 RDW 14.2 H [place] % (Auto) 13.8 H Sodium 133.7 L Chloride 95 L Glucose 116 H Salicylates < 1.0 L Acetaminophen < 10 L - EKG Interpretation by Me Additional EKG results interpreted by me: EKG sinus rhythm at a rate of 84, QTC of 436, normal axis, no T wave inversions or ST segment changes in consecutive leads. Discharge - Discharge Clinical Impression: Aggressive behavior, Bizarre behavior Schizophrenia Qualifiers: Schizophrenia type: unspecified Qualified Code(s): F20.9 - Schizophrenia, unspecified Condition: Stable Disposition: PSYCH HOSP/UNIT
--- NOTE | 2019-04-22 08:45 | PSYCHOLOGICAL NOTE ---
Psych Note - Psych Note Date seen by psych provider: 04/22/19 Time seen by psych provider: 07:45 Psych Note: Reason For Consult:IVC Consent Permissions: Patient arrived to [facility] ED via EMS under IVC petition by her son. IVC petition reports that the patient has feces all over the house, food smeared on the windows and broken glass which the patient has been walking through. The petition continued to report that the patient was cutting herself with kitchen knives throwing lit cigarettes on the floor and threatening to burn the home down. Patient is noted to have similar etiology for each [facility] ED presentation. Patient has a history of auditory and visual hallucinations, is non-med compliant verbal aggression. Today patient is sitting calmly in her room and asked clinician if she has "a man." Patient then starts to discuss how she has been is going to get a man "it does not matter what his last name is I am going to get him and take his name." Do prior to patient's acute ongoing psychosis, clinician is unable to determine if patient is orientated however she is currently alert. Patient refuses to fully engage with evaluation and does not answer if she has thoughts of harming herself or others. Mood is irritable with congruent affect. Flight of thought is noted. Currently there is no indication of delusions. Patient has a significant history of both auditory and visual hallucinations. Eye contact is poor. Conversational speech is brief, loud and clearly conveys her irritability. Attention and concentration are poor. Insight, judgment, impulse control are poor. Diagnosis: 295.70 (F25.0) Schizoaffective Disorder, Bipolar Type per history Medication recommendations per [facility]'s contracted psychiatrist Dr. Lydia LUNDBERG are as follows Cogentin 1mg IM twice daily Clonidine 0.1mg 24hr transdermal patch at bedtime Haldol decanoate 200mg once Haldol 10mg IM twice daily Impression\\plan:Patient is recommended to continue under IVC. This patient is well-known to clinician and department. Chart review conducted and noted that the patient was never seen for mental health concerns prior to May of this 2018. No head CT or MRI has been conducted. Patient was just discharged 03/27/2019 into her son's care after stabilization. Medication recommendations have been provided. Dr. Carlos was consulted to care management of this patient; attending physicians in agreement with recommendations and disposition.
[2019-04-22] MEDS ORDERED: BENZTROPINE MESYLATE INJ 2 MG/2 ML AMPULE IM SCH (10:15)
[2019-04-22] MEDS ORDERED: HALOPERIDOL LACTATE INJ 5 MG/1 ML VIAL IM SCH (12:00)
--- NOTE | 2019-04-22 13:44 | EKG REPORT ---
SEVERITY:- NORMAL ECG - SINUS RHYTHM : Confirmed by: Emmie Allison MD 22-Apr-2019 13:43:53
--- NOTE | 2019-04-22 13:48 | ER Document Report ---
Doctor's Note Notes: 04/22/19 13:47 Pt nontoxic, well appearing. Talking to herself. Pharmacist called due to clonidine order. States clonidine inj is for epidural use and not for psychiatric use. Will speak to psych team. 04/22/19 14:39 Updated medication list given. Ordered. 04/22/19 16:33 Patient resting comfortably.
[2019-04-22 14:04] LABS: APPEARANCE,URINE CLOUDY; BILIRUBIN,URINE NEGATIVE (NEGATIVE); COLOR,URINE YELLOW; GLUCOSE, URINE NEGATIVE (NEGATIVE); KETONES,URINE TRACE mg/dL (NEGATIVE); LEUKOCYTE ESTERASE,URINE LARGE (NEGATIVE); NITRITE,URINE NEGATIVE (NEGATIVE); PROTEIN,URINE NEGATIVE (NEGATIVE); URINE SPECIFIC GRAVITY 1.006; UROBILINOGEN,URINE NEGATIVE mg/dL (<2.0)
[2019-04-22 14:21] LABS: URINE AMPHETAMINES SCREEN NEGATIVE; URINE BARBITURATES SCREEN NEGATIVE; URINE BENZODIAZEPINES SCREEN NEGATIVE; URINE COCAINE SCREEN NEGATIVE; URINE METHADONE SCREEN NEGATIVE; URINE PHENCYCLIDINE SCREEN NEGATIVE
[2019-04-22 14:31] LABS: URINE MARIJUANA (THC) SCREEN NEGATIVE
[2019-04-22] MEDS ORDERED: HALOPERIDOL DECANOATE INJ 100 MG/1 ML VIAL IM ONE (14:42)
[2019-04-22] MEDS: CLONIDINE 0.1 MG/24 HR PATCH.TDWK TD SCH (15:20)
[2019-04-22] MEDS: BENZTROPINE MESYLATE INJ 2 MG/2 ML AMPULE IM SCH (18:23)
[2019-04-22] MEDS: HALOPERIDOL LACTATE INJ 5 MG/1 ML VIAL IM SCH (18:24)
[2019-04-22] MEDS ORDERED: CLONIDINE HCL INJ/PF 1000 MCG/10 ML SDV INJ SCH (22:00)
[2019-04-23 09:50] VITALS: BP 103/67
[2019-04-23] MEDS: BENZTROPINE MESYLATE INJ 2 MG/2 ML AMPULE IM SCH ×2 (10:22→18:30)
[2019-04-23] MEDS: HALOPERIDOL LACTATE INJ 5 MG/1 ML VIAL IM SCH ×2 (10:24→18:29)
[2019-04-23] MEDS: CLONIDINE 0.1 MG/24 HR PATCH.TDWK TD SCH (10:25)
--- NOTE | 2019-04-23 12:09 | ER Document Report ---
Doctor's Note Notes: 04/23/19 12:07 Upon review of patient's chart patient has a obvious urinary tract infection. Will start patient on cephalexin. Added on urine culture. Patient has been calm and cooperative this morning, she is in her room talking to herself. She denies any needs at this time. She is on full IVC papers pending placement.
[2019-04-23] MEDS: CEPHALEXIN 500 MG CAPSULE PO SCH ×2 (12:15→18:31)
--- NOTE | 2019-04-24 08:19 | PSYCHOLOGICAL NOTE ---
Psych Note - Psych Note Date seen by psych provider: 04/23/19 Time seen by psych provider: 08:20 Psych Note: Reason For Consult:IVC Consent Permissions: Patient arrived to [facility] ED via EMS under IVC petition by her son. Check in conducted with patient: Patient has been observed sitting quietly in her room and has been calm. It was noted the patient spilled her drink and became verbal (yelling and cussing) at the corner of her room. She appeared to be blaming someone for spilling her drink; no one was in the room with her at the time. When staff asked if she needed paper towels she started to engage with staff and blaming them for spilling; however, when staff provided her paper towels, she thanked them calmly. Clinician asked if the patient would like a new drink and the patietn responded; " you know that is really considerate of you, please thank you I would." Clinician engaged with patient later in the day to ask if the patient would be willing to take medications orally rather than but shot. Patient became verbally aggressive with denying she needs medications, raising her voice at clinician and cussed stating she "didn't need that shit...I don't take it." Patient then demanded the clinician leave her room. Diagnosis: 295.70 (F25.0) Schizoaffective Disorder, Bipolar Type per history Medication recommendations per [facility]'s contracted psychiatrist Dr. Lydia LUNDBERG are as follows Cogentin 1mg IM twice daily Clonidine 0.1mg 24hr transdermal patch at bedtime Haldol decanoate 200mg once Haldol 10mg IM twice daily Impression\\plan:Patient is recommended to continue under IVC. This patient is well-known to clinician and department. Chart review conducted and noted that the patient was never seen for mental health concerns prior to May of this year 2018. Head CT conducted during last [facility] ED visit; no findings. Patient was just discharged 03/27/2019 into her son's care after stabilization. Medication recommendations have been provided. Dr. Carlos was consulted to care management of this patient; attending physicians in agreement with recommendations and disposition.
[2019-04-24] MEDS: BENZTROPINE MESYLATE INJ 2 MG/2 ML AMPULE IM SCH ×2 (09:39→17:41)
[2019-04-24] MEDS: CEPHALEXIN 500 MG CAPSULE PO SCH ×2 (09:39→17:41)
[2019-04-24] MEDS: HALOPERIDOL LACTATE INJ 5 MG/1 ML VIAL IM SCH ×2 (09:40→17:41)
[2019-04-24] MEDS: CLONIDINE 0.1 MG/24 HR PATCH.TDWK TD SCH (09:41)
--- NOTE | 2019-04-24 11:49 | PSYCHOLOGICAL NOTE ---
Psych Note - Psych Note Date seen by psych provider: 04/24/19 Time seen by psych provider: 11:45 Psych Note: Patient was calmly sitting in her room when clinician entered. Patient reported she was "doing great" and requested to go home. Patient stated she requested a Pepsi earlier and she has not received it. Clinician reminded nurse of patient's request. Ali with APS checked in on patient. Per Ali, patient refused to engage. Medication recommendations per [facility]'s contracted psychiatrist Dr. Lydia LUNDBERG are as follows Cogentin 1mg IM twice daily Clonidine 0.1mg 24hr transdermal patch at bedtime Haldol 10mg IM twice daily Impression\\plan: Patient is recommended to continue under IVC. This patient is well-known to clinician and department. Chart review conducted and noted that the patient was never seen for mental health concerns prior to May of this year 2018. Head CT conducted during last [facility] ED visit; no findings. Patient was just discharged 03/27/2019 into her son's care after stabilization. APS is involved with patient. Scales referral has been sent. Dr. Carlos was consulted to care management of this patient; attending physicians in agreement with recommendations and disposition.
--- NOTE | 2019-04-24 12:00 | ER Document Report ---
Doctor's Note Notes: 04/24/19 11:50 PHYSICAL EXAMINATION: GENERAL: Well-appearing and in no acute distress. HEAD: Atraumatic, normocephalic. EYES: sclera anicteric, conjunctiva are normal. ENT: nares patent. Moist mucous membranes. NECK: Normal range of motion, supple without lymphadenopathy LUNGS: CTAB and equal. No wheezes rales or rhonchi. HEART: Regular rate and rhythm without murmurs ABDOMEN: Soft, nontender, no guarding. EXTREMITIES: Normal range of motion, no pitting edema. No cyanosis. BACK: No CVA tenderness NEUROLOGICAL: Cranial nerves grossly intact. Normal speech. Normal gait. PSYCH: Normal mood, patient with tangential speech, although able to be redirected SKIN: Warm, Dry, normal turgor, no rashes or lesions noted Reviewed patient's vital signs, diagnostic evaluation and notes. Patient appears medically clear for transfer discharge pending mental health evaluation. Patient does have incidental UTI for which she is on Keflex 500 mg twice a day. 04/24/19 17:12 Patient has been cleared from mental health team for discharge. Patient no longer meets IVC criteria at this time. Patient will be discharged in the care of her son and her son has verbalized agreement with discharge plan of care per the mental health team.
== END 2019-04-24 18:50 | disposition home or self-care (01) ==
LOC: ER 19:39
DX: F25.0 Schizoaffective disorder, bipolar type (principal); N39.0 Urinary tract infection, site not specified; R45.6 Violent behavior; F17.200 Nicotine dependence, unspecified, uncomplicated; J44.9 Chronic obstructive pulmonary disease, unspecified
CPT/HCPCS: 93005; 99285; 96372; 36415; 87086; 80307 ×4; 85025; 80053; 81001; 93010; J0515 ×3; J1630 ×3; J3490 ×3

== ENCOUNTER 2019-05-10 21:32 | Emergency (ER) | payer SELFPAY ==
--- NOTE | 2019-05-10 23:18 | ER Document Report ---
ED General - General Chief Complaint: Psych Problem Stated Complaint: IVC/ WITH PAPERS Time Seen by Provider: 05/10/19 23:18 Mode of Arrival: Medic Information source: Patient, [employer] Cannot obtain history due to: Uncooperative TRAVEL OUTSIDE OF THE [place] IN LAST 30 DAYS: No - HPI Onset: Other - unknow but according to police and nursing patient has been acting odd and has been off her medications for weeks. Onset/Duration: Gradual Quality of pain: No pain Severity: Moderate Pain Level: Denies Associated symptoms: Other - hallucinating, acting out Exacerbated by: Other - unknown Relieved by: Denies Similar symptoms previously: Yes Recently seen / treated by doctor: No Notes: 63 year old female with a history of Schizophrenia and COPD brought in by police under IVC for odd behavior and aggresive behavior. The patient apparently has been off her medications and she has been seeing things. The patient is acutely psychotic currently and she is not much of a historian. The patient is denying SI or HI but she is actively hallucinating and she is fairly aggressive here in the ER. The patient has been seen for mental health issues in this hospital before. - Related Data Allergies/Adverse Reactions: No Known Allergies Allergy (Verified 05/10/19 21:59) Past Medical History - General Information source: Patient, Law Enforcement - Social History Smoking Status: Current Every Day Smoker Frequency of alcohol use: Occasional Drug Abuse: None Lives with: Family Family History: Reviewed & Not Pertinent Patient has suicidal ideation: Yes Patient has homicidal ideation: Yes - Past Medical History Cardiac Medical History: Denies: Hx Coronary Artery Disease, Hx Heart Attack, Hx Hypertension Pulmonary Medical History: Reports: Hx Bronchitis, Hx COPD Denies: Hx Asthma, Hx Pneumonia Neurological Medical History: Denies: Hx Cerebrovascular Accident, Hx Seizures Renal/ Medical History: Denies: Hx Peritoneal Dialysis Musculoskeletal Medical History: Reports Hx Arthritis Psychiatric Medical History: Reports: Hx Schizophrenia Past Surgical History: Reports: Hx Orthopedic Surgery - Immunizations Hx Diphtheria, Pertussis, Tetanus Vaccination: No Review of Systems - Review of Systems Constitutional: No symptoms reported EENT: No symptoms reported Cardiovascular: No symptoms reported Respiratory: No symptoms reported Gastrointestinal: No symptoms reported Genitourinary: No symptoms reported Female Genitourinary: No symptoms reported Musculoskeletal: No symptoms reported Skin: No symptoms reported Hematologic/Lymphatic: No symptoms reported Neurological/Psychological: Hallucinations, Other - aggressive behavior, acting out Physical Exam - Vital signs Vitals: Temp Pulse Resp BP Pulse Ox 97.6 F 73 16 110/80 96 05/10/19 21:33 05/10/19 21:33 05/10/19 21:33 05/10/19 21:33 05/10/19 21:33 - Notes Notes: GENERAL: Well-nourished, Chronically ill appearing. HEAD: Atraumatic, normocephalic. EYES: Pupils equal round and reactive to light, extraocular movements intact, sclera anicteric, conjunctiva are normal. ENT: Nares patent, oropharynx clear without exudates. Moist mucous membranes. NECK: Normal range of motion, supple without lymphadenopathy or JVD. LUNGS: Breath sounds clear to auscultation bilaterally and equal. No wheezes rales or rhonchi. HEART: Regular rate and rhythm without murmurs, rubs or gallops. ABDOMEN: Soft, nontender, normoactive bowel sounds. No guarding, no rebound. No masses appreciated. EXTREMITIES: Normal range of motion, no pitting or edema. No clubbing or cyanosis. NEUROLOGICAL: Cranial nerves II through XII grossly intact. Normal speech, normal gait. PSYCH: Patient is actively psychotic and aggressive. She is very tangential with her thought process. Denies SI or HI. SKIN: Warm, Dry, normal turgor, no rashes or lesions noted. Course - Re-evaluation Re-evalutation: 05/10/19 23:32 The patient will need psych placement once she is medically cleared. Psych labs ordered and are pending. 05/11/19 04:56 Patient is medically cleared at this point and she is waiting on her Psych consult. Patient was signed out to the oncoming ER provider at shift change since Psych had yet to evaluate the patient at the end of my shift. - Vital Signs Vital signs: Temp Pulse Resp BP Pulse Ox 97.6 F 73 16 108/79 96 05/11/19 00:51 05/11/19 00:51 05/11/19 00:51 05/11/19 00:51 05/11/19 00:51 - Laboratory Result Diagrams: 05/10/19 22:28 05/10/19 22:28 Laboratory results interpreted by me: 05/10/19 05/10/19 05/10/19 22:28 22:28 23:48 RDW 14.4 H Sodium 133.4 L Chloride 95 L Carbon Dioxide 31 H Creatinine 0.50 L Glucose 115 H Alkaline Phosphatase 143 H Ur Leukocyte Esterase TRACE H Salicylates < 1.0 L Acetaminophen < 10 L Discharge - Discharge Clinical Impression: Schizophrenia Qualifiers: Schizophrenia type: unspecified Qualified Code(s): F20.9 - Schizophrenia, unspecified Condition: Stable Disposition: PSYCH HOSP/UNIT
[2019-05-10 23:43] LABS: ALBUMIN 4.1 g/dL (3.5-5.0); ALKALINE PHOSPHATASE 143 U/L (38-126); ANION GAP 7 (5-19); ASPARTATE AMINO TRANSFERASE 27 U/L (14-36); BILIRUBIN,DIRECT 0.3 mg/dL (0.0-0.4); BILIRUBIN,TOTAL 0.4 mg/dL (0.2-1.3); BLOOD UREA NITROGEN 8 mg/dL (7-20); CALCIUM 9.5 mg/dL (8.4-10.2); CARBON DIOXIDE 31 mmol/L (22-30); CHLORIDE 95 mmol/L (98-107); GLUCOSE 115 mg/dL (75-110); POTASSIUM 4.1 mmol/L (3.6-5.0)
[2019-05-10 23:46] LABS: ABSOLUTE EOSINOPHILS # (AUTO) 0.1 10^3/uL (0.0-0.6); ABSOLUTE LYMPHOCYTES (AUTO) 1.7 10^3/uL (0.5-4.7); ABSOLUTE MONOCYTES (AUTO) 0.9 10^3/uL (0.1-1.4); ABSOLUTE NEUT (AUTO) 6.1 10^3/uL (1.7-8.2); BASOPHILS % (AUTO) 0.6 % (0-2); HEMATOCRIT 41.6 % (36.0-47.0); HEMOGLOBIN 14.2 g/dL (12.0-15.5); MEAN CORPUSCULAR HGB CONC 34.2 g/dL (32.0-36.0); MEAN CORPUSCULAR VOLUME 88 fl (80-97); MONOCYTES % (AUTO) 9.9 % (3-13); PLATELET COUNT 335 10^3/uL (150-450); RED BLOOD COUNT 4.74 10^6/uL (3.72-5.28); RED CELL DISTRIBUTION WIDTH 14.4 % (11.5-14.0); SEGMENTED NEUTROPHILS % (AUTO) 69.5 % (42-78); TOTAL CELLS COUNTED % (AUTO) 100 %; WHITE BLOOD COUNT 8.8 10^3/uL (4.0-10.5)
[2019-05-10 23:54] LABS: ACETAMINOPHEN < 10 ug/mL (10-30); ALCOHOL < 10 mg/dL (NONE DETECTED); SALICYLATE < 1.0 mg/dL (2.0-20.0)
[2019-05-11 00:23] LABS: APPEARANCE,URINE CLEAR; BILIRUBIN,URINE NEGATIVE (NEGATIVE); COLOR,URINE STRAW; GLUCOSE, URINE NEGATIVE (NEGATIVE); KETONES,URINE NEGATIVE (NEGATIVE); LEUKOCYTE ESTERASE,URINE TRACE (NEGATIVE); NITRITE,URINE NEGATIVE (NEGATIVE); PROTEIN,URINE NEGATIVE (NEGATIVE); URINE SPECIFIC GRAVITY 1.003; UROBILINOGEN,URINE NEGATIVE mg/dL (<2.0)
[2019-05-11 00:35] LABS: URINE AMPHETAMINES SCREEN NEGATIVE; URINE BARBITURATES SCREEN NEGATIVE; URINE BENZODIAZEPINES SCREEN NEGATIVE; URINE COCAINE SCREEN NEGATIVE; URINE MARIJUANA (THC) SCREEN NEGATIVE; URINE METHADONE SCREEN NEGATIVE; URINE PHENCYCLIDINE SCREEN NEGATIVE
--- NOTE | 2019-05-11 00:59 | EKG REPORT ---
SEVERITY:- NORMAL ECG - SINUS RHYTHM : Confirmed by: Emmie Allison MD 11-May-2019 00:59:00
[2019-05-11 10:27] VITALS: BP 141/93
[2019-05-11] MEDS ORDERED: HALOPERIDOL DECANOATE INJ 100 MG/1 ML VIAL IM ONE (13:18)
[2019-05-11] MEDS ORDERED: BENZTROPINE MESYLATE INJ 2 MG/2 ML AMPULE IM ONE (13:18)
--- NOTE | 2019-05-11 13:35 | PSYCHOLOGICAL NOTE ---
Psych Note - Psych Note Date seen by psych provider: 05/11/19 Time seen by psych provider: 09:25 Psych Note: Reason for consult: IVC Patient states that she is here to talk to the doctor. When it was explained that the patient had been waiting to speak with the clinician, the patient asked clinician to sit in talk. Patient denies trying to hurt her son stating "that is a lie." Patient is note to have her finger nails painted. She confirms she did them herself and showed clinician her feet (patient's toe nails are painted to match). Patient is also noted to have clean hair that is curled and styled. Patient is complemented on her hair, she said thank you and confirmed her did her hair herself. Patient is alert and orientated to person, place, time and circumstance. Mood is overall euthymic with congruent affect however does have irritability at times. This is baseline for the patient. Patient denies suicidal and homicidal ideations. Delusions are absent behaviors congruent with an intact reality based presentation ie organized linear thought process. Eye contact is fair. Conversational speech is within normal rate, tone and prosody. Intellectual abilities appear to be within the average range. Attention and concentration are fair. Insight, judgment, impulse control is fair. Behavioral health team contacted patient's son, PADMA petitioner; see mental health note. Chart review conducted: Patient received the Haldol deconate 03/31/2019 and then again 3 weeks later. Patient's assigned APS worker, Phyllis, came to visit patient. She stated she is pleasantly surprised on patient's presentation. She reports this is the best the patient has ever been during any of their previous encounters. Medication recommendations per [facility]'s contract psychiatrist Dr Miguel Ángel LUNDBERG are as follows Haldol decanoate 200mg once Cogentin 1mg IM once Impression/Plan: Patient is recommended for rescind of IVC. Patient is noted to be due for her Haldol Decanoate shot. Typically Haldol Decanoate shots last 3 to 4 weeks however since patient refuses to take oral medications to help sustain, it is noted patient needs medication every 3 weeks to maintain stability. Patient is again encouraged to take oral medications however she is adamant she does not need them. At this time patient does not meet IVC criteria per [place] GS 122C. Patient's APS worker reports this is the best presentation she has ever seen of the patient both in the hospital and at home and discusses possibly closing the case. Dr. Carlos was consulted to care and management of this patient; attending physicians in agreement with recommendations and disposition
--- NOTE | 2019-05-11 15:09 | ER Document Report ---
Doctor's Note Notes: 05/11/19 15:08 Pt evaluated. Pt without any complaints. Pt is to be discharged to care of son per psych recommendations. Nontoxic, well appearing.
== END 2019-05-11 16:42 | disposition home or self-care (01) ==
LOC: ER 21:32
DX: F20.9 Schizophrenia, unspecified (principal); J44.9 Chronic obstructive pulmonary disease, unspecified; F17.200 Nicotine dependence, unspecified, uncomplicated
CPT/HCPCS: 93005; 99285; 96372; 36415; 80307 ×4; 85025; 80053; 81001; 93010; J0515; J1631

== ENCOUNTER 2019-07-07 17:32 | Emergency (ER) | payer SELFPAY ==
--- NOTE | 2019-07-07 19:25 | ER Document Report ---
ED General - General Chief Complaint: Psych Problem Stated Complaint: BEHAVIORAL ISSUES Time Seen by Provider: 07/07/19 17:43 Mode of Arrival: Medic Information source: Patient, [facility] Records Notes: Patient is a 64-year-old female presenting to the emergency department by EMS chief complaint of request for mental health evaluation. Patient is well-known to personnel in the department. Mental health provider in the ER and states that the patient is medically noncompliant and usually receives medications in the ER of 10 mg IM Haldol, 200 mg Haldol Decanoate and 1 mg of Cogentin. At time of presentation patient states that she does not want to stay in the hospital, she doesn't agree to testing states she does not take any medications but only takes vitamins and supplements. TRAVEL OUTSIDE OF THE [place] IN LAST 30 DAYS: No - HPI Onset: Other Onset/Duration: Persistent Quality of pain: No pain Severity: None Pain Level: 0 Exacerbated by: Denies Relieved by: Denies Similar symptoms previously: Yes Recently seen / treated by doctor: No - Related Data Allergies/Adverse Reactions: No Known Allergies Allergy (Verified 05/10/19 21:59) Home Medications: haldol Past Medical History - General Information source: Patient, [facility] Records - Social History Smoking Status: Current Every Day Smoker Cigarette use (# per day): Yes Chew tobacco use (# tins/day): No Smoking Education Provided: Yes Frequency of alcohol use: Rare Drug Abuse: None Lives with: Family Family History: Reviewed & Not Pertinent Patient has suicidal ideation: No Patient has homicidal ideation: No - Past Medical History Cardiac Medical History: Denies: Hx Coronary Artery Disease, Hx Heart Attack, Hx Hypertension Pulmonary Medical History: Reports: Hx Bronchitis, Hx COPD Denies: Hx Asthma, Hx Pneumonia Neurological Medical History: Denies: Hx Cerebrovascular Accident, Hx Seizures Renal/ Medical History: Denies: Hx Peritoneal Dialysis Musculoskeletal Medical History: Reports Hx Arthritis Psychiatric Medical History: Reports: Hx Schizophrenia Past Surgical History: Reports: Hx Orthopedic Surgery - Immunizations Hx Diphtheria, Pertussis, Tetanus Vaccination: No Review of Systems - Review of Systems Notes: REVIEW OF SYSTEMS: CONSTITUTIONAL : Denies fever, chills, or sweats. Denies recent illness. EENT: Denies eye, ear, throat, or mouth pain or symptoms. Denies nasal or sinus congestion. CARDIOVASCULAR: Denies chest pain. RESPIRATORY: Denies cough, cold, or chest congestion. Denies shortness of breath, difficulty breathing, or wheezing. GASTROINTESTINAL: Denies abdominal pain. Denies nausea, vomiting, or diarrhea. Denies constipation. GENITOURINARY: Denies difficulty urinating, painful urination, burning, frequency, or blood in urine. MUSCULOSKELETAL: Denies neck or back pain or joint pain or swelling. SKIN: Denies rash or skin lesions. HEMATOLOGIC : Denies easy bruising or bleeding. NEUROLOGICAL: Denies altered mental status or loss of consciousness. Denies headache. Denies weakness or paralysis or loss of use of either side. Denies problems with gait or speech. Denies sensory or motor loss. PSYCHIATRIC: Patient seems slightly agitated and slightly hyper. 10 Systems are negative unless otherwise specified above Physical Exam - Notes Notes: PHYSICAL EXAMINATION: GENERAL: Well-appearing, well-nourished and in no acute distress. HEAD: Atraumatic, normocephalic. EYES: Pupils equal round and reactive to light, extraocular movements intact, sclera anicteric, conjunctiva are normal. ENT: nares patent, oropharynx clear without exudates. Moist mucous membranes. NECK: Normal range of motion, supple without lymphadenopathy, no appreciable JVD LUNGS: Lungs clear to auscultation bilaterally and equal. No wheezes rales or rhonchi. HEART: Regular rate and rhythm without murmurs ABDOMEN: Soft, nontender, normal bowel sounds. No guarding, no rebound. No masses appreciated. EXTREMITIES: Active full range of motion, no pitting or edema. No cyanosis. 2+ pulses x4 NEUROLOGICAL: No focal neurological deficits. Moves all extremities spontaneously and on command. Patient is alert and oriented x3 Richard Coma Scale of 15 SKIN: Warm, Dry, and intact. Normal turgor, no rashes or lesions noted. Course - Re-evaluation Re-evalutation: 07/07/19 19:33 The patient was reevaluated and spoken to by myself mental health services and nursing staff patient states that this is all a misunderstanding she has never been suicidal or homicidal she states that she cut her hand at home basically a paper cut and there was blood dripping which made things look worse. Patient does have a very small paper cut to the right ventral aspect of her thumb. Patient once again states that she does not want testing does not want medicine is alert and oriented x3 and thus is discharged in stable condition. Discharge - Discharge Clinical Impression: Tobacco abuse, History of schizophrenia Condition: Stable Disposition: HOME, SELF-CARE Additional Instructions: Please follow-up with your physicians as needed.
[2019-07-07 19:36] LABS: APPEARANCE,URINE CLEAR; BILIRUBIN,URINE NEGATIVE (NEGATIVE); COLOR,URINE STRAW; GLUCOSE, URINE NEGATIVE (NEGATIVE); KETONES,URINE NEGATIVE (NEGATIVE); LEUKOCYTE ESTERASE,URINE NEGATIVE (NEGATIVE); NITRITE,URINE NEGATIVE (NEGATIVE); PROTEIN,URINE NEGATIVE (NEGATIVE); URINE SPECIFIC GRAVITY 1.003; UROBILINOGEN,URINE NEGATIVE mg/dL (<2.0)
[2019-07-07 19:41] VITALS: BP 144/80
[2019-07-07 19:55] LABS: URINE AMPHETAMINES SCREEN NEGATIVE; URINE BARBITURATES SCREEN NEGATIVE; URINE COCAINE SCREEN NEGATIVE; URINE MARIJUANA (THC) SCREEN NEGATIVE; URINE METHADONE SCREEN NEGATIVE; URINE PHENCYCLIDINE SCREEN NEGATIVE
[2019-07-07 20:02] LABS: URINE BENZODIAZEPINES SCREEN UNCONFIRMED POSITIVE
== END 2019-07-07 19:45 | disposition home or self-care (01) ==
LOC: ER 17:32
DX: S61.411A Laceration without foreign body of right hand, initial encounter (principal); Z91.14 Patient's other noncompliance with medication regimen; Z79.899 Other long term (current) drug therapy; W45.8XXA Other foreign body or object entering through skin, initial encounter; F17.210 Nicotine dependence, cigarettes, uncomplicated; J44.9 Chronic obstructive pulmonary disease, unspecified
CPT/HCPCS: 80307; 81001; 99284

== ENCOUNTER 2019-07-26 21:30 | Emergency (ER) | payer SELFPAY ==
[2019-07-26 21:57] LABS: ABSOLUTE EOSINOPHILS # (AUTO) 0.2 10^3/uL (0.0-0.6); ABSOLUTE LYMPHOCYTES (AUTO) 1.6 10^3/uL (0.5-4.7); TOTAL CELLS COUNTED % (AUTO) 100 %
[2019-07-26 22:09] LABS: ABSOLUTE BASOPHILS # (AUTO) 0.1 10^3/uL (0.0-0.2); ABSOLUTE NEUT (AUTO) 4.3 10^3/uL (1.7-8.2); BASOPHILS % (AUTO) 1.1 % (0-2); EOSINOPHILS % (AUTO) 2.6 % (0-6); HEMATOCRIT 41.9 % (36.0-47.0); HEMOGLOBIN 14.5 g/dL (12.0-15.5); LYMPHOCYTES % (AUTO) 22.4 % (13-45); MEAN CORPUSCULAR HEMOGLOBIN 30.8 pg (27.0-33.4); MEAN CORPUSCULAR HGB CONC 34.6 g/dL (32.0-36.0); MEAN CORPUSCULAR VOLUME 89 fl (80-97); MONOCYTES % (AUTO) 14.4 % (3-13); PLATELET COUNT 354 10^3/uL (150-450); RED CELL DISTRIBUTION WIDTH 14.1 % (11.5-14.0); SEGMENTED NEUTROPHILS % (AUTO) 59.5 % (42-78); WHITE BLOOD COUNT 7.2 10^3/uL (4.0-10.5)
[2019-07-26 22:15] LABS: ALBUMIN 4.2 g/dL (3.5-5.0); ALKALINE PHOSPHATASE 105 U/L (38-126); ANION GAP 7 (5-19); ASPARTATE AMINO TRANSFERASE 27 U/L (14-36); BILIRUBIN,DIRECT 0.2 mg/dL (0.0-0.4); BILIRUBIN,TOTAL 0.3 mg/dL (0.2-1.3); BLOOD UREA NITROGEN 7 mg/dL (7-20); CALCIUM 9.2 mg/dL (8.4-10.2); CARBON DIOXIDE 31 mmol/L (22-30); CHLORIDE 90 mmol/L (98-107); GLUCOSE 111 mg/dL (75-110); POTASSIUM 4.4 mmol/L (3.6-5.0); TOTAL PROTEIN 7.2 g/dL (6.3-8.2)
[2019-07-26 22:16] LABS: ACETAMINOPHEN < 10 ug/mL (10-30); ALCOHOL < 10 mg/dL (NONE DETECTED); SALICYLATE < 1.0 mg/dL (2.0-20.0)
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
[2019-07-26] MEDS ORDERED: HALOPERIDOL LACTATE INJ 5 MG/1 ML VIAL IM ONE (22:27)
[2019-07-26] MEDS ORDERED: LORAZEPAM INJ 2 MG/1 ML VIAL IM ONE (22:31)
[2019-07-26] MEDS: BENZTROPINE MESYLATE INJ 2 MG/2 ML AMPULE IM SCH (22:52)
[2019-07-26] MEDS ORDERED: HALOPERIDOL DECANOATE INJ 100 MG/1 ML VIAL IM SCH (23:00)
--- NOTE | 2019-07-26 23:52 | ER Document Report ---
ED Psych Disorder / Suicide - General Mode of Arrival: Ambulatory Information source: Law Enforcement TRAVEL OUTSIDE OF THE [place] IN LAST 30 DAYS: No <LEO CORDON - Last Filed: 07/26/19 23:47> <JIHAN AL - Last Filed: 07/27/19 15:44> - General Chief Complaint: Psych Problem Stated Complaint: IVC Time Seen by Provider: 07/26/19 22:17 Notes: This 64-year-old woman presents to the emergency department history of psychiat valeri disorder, apparently noncompliant with her medication became violent at home. IVC papers were done and she was brought to the emergency department by the local fire alarm operator. He notes patient verbally abusive and apparently off her medications. (LEO CORDON) - Related Data Allergies/Adverse Reactions: No Known Allergies Allergy (Verified 05/10/19 21:59) Past Medical History - Social History Smoking Status: Unknown if Ever Smoked Family History: Reviewed & Not Pertinent Patient has suicidal ideation: No Patient has homicidal ideation: No - Past Medical History Cardiac Medical History: Denies: Hx Coronary Artery Disease, Hx Heart Attack, Hx Hypertension Pulmonary Medical History: Reports: Hx Bronchitis, Hx COPD Denies: Hx Asthma, Hx Pneumonia Neurological Medical History: Denies: Hx Cerebrovascular Accident, Hx Seizures Renal/ Medical History: Denies: Hx Peritoneal Dialysis Musculoskeletal Medical History: Reports Hx Arthritis Psychiatric Medical History: Reports: Hx Schizophrenia Past Surgical History: Reports: Hx Orthopedic Surgery - Immunizations Hx Diphtheria, Pertussis, Tetanus Vaccination: No <LEO CORDON - Last Filed: 07/26/19 23:47> Review of Systems <LEO CORDON - Last Filed: 07/26/19 23:47> - Review of Systems Notes: Constitutional: Negative for fever. HENT: Negative for sore throat. Eyes: Negative for visual changes. Cardiovascular: Negative for chest pain. Respiratory: Negative for shortness of breath. Gastrointestinal: Negative for abdominal pain, vomiting or diarrhea. Genitourinary: Negative for dysuria. Musculoskeletal: Negative for back pain. Skin: Negative for rash. Neurological: Negative for headaches, weakness or numbness. Psychiatric: Verbally abusive and initially refusing to cooperate. 10 point ROS negative except as marked above and in HPI. (LEO CORDON) Physical Exam <LOE CORDON - Last Filed: 07/26/19 23:47> - Vital signs Vitals: Temp Pulse Resp BP Pulse Ox 97.7 F 87 16 157/72 H 100 07/26/19 21:37 07/26/19 21:37 07/26/19 21:37 07/26/19 21:37 07/26/19 21:37 - Notes Notes: PHYSICAL EXAMINATION: Physical Exam: General: Well-nourished well-developed 64-year-old woman in no acute distress HEENT: NC/AT, pupils equal round and reactive to light, MM moist,nares clear, oropharynx clear, airway patent Neck: supple, no adenopathy, no masses. Good range of motion Lungs: clear, no wheezing, no rales no rhonchi CVS: Regular rate and rhythm no murmur gallop or rub Abdomen: Soft, active, nontender, no masses, no hepatosplenomegaly Ext: No edema, clubbing or cyanosis. Neuro: Alert and responsive, moving all 4 extremities on command, cranial nerves intact, no focal findings Skin: Intact no open lesions, no rash PSYCH: Uncooperative, refusing to talk to this examiner, cursing and verbally a busive. (LEO CORDON) Course - Laboratory Result Diagrams: 07/26/19 21:48 07/26/19 21:48 <LEO CORDON - Last Filed: 07/26/19 23:47> - Laboratory Result Diagrams: 07/26/19 21:48 07/26/19 21:48 <JIAHN AL - Last Filed: 07/27/19 15:44> - Re-evaluation Re-evalutation: 07/26/19 23:50 After some discussion with the psychiatric staff who seemed to know the patient well given her frequent visits, we have decided to place her back on her usual medications. Haldol Decanoate 200 mg IM, Haldol 5 mg twice daily, Cogentin 1 mg daily. She is given an emergent dose of Haldol 5 mg IM and lorazepam 1 mg IM stat. Patient was given medications became more cooperative, reevaluation at this time finds that she is resting quietly in the bed. Patient will be evalu ated by psychiatry in the morning, and will remain on IVC papers, and dispossitioned at that time. at this time (LEO CORDON) - Vital Signs Vital signs: Temp Pulse Resp BP Pulse Ox 97.8 F 83 18 126/86 H 96 07/27/19 12:00 07/27/19 12:00 07/27/19 12:00 07/27/19 12:00 07/27/19 12:00 - Laboratory Laboratory results interpreted by me: 07/26/19 07/26/19 21:48 21:48 RDW 14.1 H [place] % (Auto) 14.4 H Sodium 127.9 L Chloride 90 L Carbon Dioxide 31 H Creatinine 0.44 L Glucose 111 H Salicylates < 1.0 L Acetaminophen < 10 L 07/26/19 23:52 I have reviewed laboratory data and used this information for the treatment decisions regarding the patient. (LEO CORDON) Discharge <LEO CORDON - Last Filed: 07/26/19 23:47> <MIKAELAJIHAN - Last Filed: 07/27/19 15:44> - Discharge Clinical Impression: Acute psychosis, Poor compliance with medication Schizophrenia Qualifiers: Schizophrenia type: unspecified Qualified Code(s): F20.9 - Schizophrenia, unspecified Condition: Stable Disposition: HOME, SELF-CARE Additional Instructions: You have been evaluated by both medical and behavioral health teams for aggressive behaviors and have been deemed appropriate for discharge. While in the emergency department you received the following services: Medical screening and assessment, nursing services, dietary services, pharmacological services, one-on-one counseling and/or psychotherapy, environmental services, and continuous observation by a patient drug safety data management specialist. Medication recommendations have been have been provided and are as follows: Haldol Decanoate 200MG, one time dose; Haldol 5MG, twice a day; and Cogentin 1MG, daily. You are highly encouraged to take your medications as prescribed as the medication appear to have stabilized your mood and overall mental health. Please do not stop these medications without discussing with your prescribing physician. Schizophrenia Schizophrenia is a chemical disorder that affects how the brain functions. The exact cause is unknown, but it tends to run in families. It is NOT caused by emotional trauma. Schizophrenia causes disordered thinking, including unusual beliefs and inability to "process" happenings around the patient. Patients with schizophrenia benefit greatly from medicine. These medicines are called antipsychotics. Never stop the medicine without the doctor's approval. Counselling may help the patient deal with his disease. Schizophrenics require a very ordered environment. Stresses and sudden changes may bring out symptoms. Drugs and alcohol abuse may become problems. Contact the counsellor or crisis line if there are thoughts of suicide or of harming others, or if you become aware of unusual thoughts or beliefs. AT ANY TIME, IF YOUR SYMPTOMS CHANGE SIGNIFICANTLY OR WORSEN OR YOU DEVELOP NEW SYMPTOMS, RETURN TO THE EMERGENCY DEPARTMENT IMMEDIATELY FOR RE-EVALUATION.
[2019-07-27] MEDS ORDERED: HALOPERIDOL LACTATE INJ 5 MG/1 ML VIAL IM SCH (10:00)
[2019-07-27] MEDS: BENZTROPINE MESYLATE INJ 2 MG/2 ML AMPULE IM SCH (11:15)
[2019-07-27 12:39] VITALS: BP 126/86
[2019-07-27] MEDS ORDERED: HALOPERIDOL DECANOATE INJ 100 MG/1 ML VIAL IM ONE (13:30)
--- NOTE | 2019-07-27 13:47 | ER Document Report ---
Doctor's Note Notes: 07/27/19 13:43 Patient's vital signs and previous labs, diagnostic images reviewed. Patient sodium is 127, will recheck bmp. reviewed mental health notes, nurse's notes and previous providers notes. VSS. Pt is in no distress at this time. Denies any SI or HI. General: A&Ox3. Answers questions appropriately. Heart: RRR Lungs: CTAB Psych: Flat affect A/P: Continue monitoring and rec's per MH. Normal diet Awaiting for mental health to decide if they want to place patient or discharge home 07/27/19 13:46 07/27/19 13:47
--- NOTE | 2019-07-27 15:49 | PSYCHOLOGICAL NOTE ---
Psych Note - Psych Note Date seen by psych provider: 07/27/19 Time seen by psych provider: 12:25 Psych Note: Check in conducted with patient. Patient was not given Haldol Decanoate last night. Patient was given Haldol Decanoate shot today. Patient has been observed sleeping peacefully, eating, and drinking. Patient is overall unwilling to engage with behavioral health team; which is her baseline. Patient has not engaged in acts of aggression towards staff. Patient denies SI/HI. Per Phyllis Barth, ([phone]) patient's case with APS has been closed. Guillermo with [facility] mobile crisis stated he would file an APS report. Medication recommendations per [facility]'s contract psychiatrist Dr Miguel Ángel LUNDBERG are as follows Continue Cogentin 1MG, daily Continue Haldol 5MG, twice a day Impression/Plan: Patient is recommended for rescind of IVC and is cleared from acute psychiatric services. Medication recommendations have been provided. Patient is well known to behavioral health, and patient is noted to be due for her Haldol Decanoate shot. Typically Haldol Decanoate shots last 3 to 4 weeks however since patient refuses to take oral medications to help sustain, it is noted patient needs medication every 3 weeks to maintain stability. Historically, patient is able to stabilize quickly on Haldol Decanoate and inpatient psychiatric hospitalization is not required. Patient is believed to be at baseline. Patient's son has agreed to be a collaborator in patient's care, to the degree it is possible. Patient is historically non complaint with medications. [facility] mobile crisis is involved and will follow up with patient this evening. Patient Dr. Carlos was consulted to care and management of this patient; attending physicians in agreement with recommendations and disposition
--- NOTE | 2019-07-28 16:12 | EKG REPORT ---
SEVERITY:- ABNORMAL ECG - SINUS RHYTHM BASELINE ARTIFACTS NOTED : Confirmed by: Bill Robles 28-Jul-2019 16:11:55
== END 2019-07-27 16:00 | disposition home or self-care (01) ==
LOC: ER 21:30
DX: F20.9 Schizophrenia, unspecified (principal); J44.9 Chronic obstructive pulmonary disease, unspecified; Z91.14 Patient's other noncompliance with medication regimen
CPT/HCPCS: 93005; 99285; 96372; 36415; 80307 ×3; 85025; 80053; 93010; J0515 ×2; J1631; J1630 ×2; J2060

== ENCOUNTER 2019-09-22 23:53 | Emergency (ER) | payer SELFPAY ==
[2019-09-23 00:43] LABS: ABSOLUTE EOSINOPHILS # (AUTO) 0.1 10^3/uL (0.0-0.6); ABSOLUTE LYMPHOCYTES (AUTO) 1.3 10^3/uL (0.5-4.7); ABSOLUTE MONOCYTES (AUTO) 0.9 10^3/uL (0.1-1.4); ABSOLUTE NEUT (AUTO) 7.4 10^3/uL (1.7-8.2); BASOPHILS % (AUTO) 0.5 % (0-2); EOSINOPHILS % (AUTO) 1.1 % (0-6); HEMATOCRIT 41.4 % (36.0-47.0); HEMOGLOBIN 14.5 g/dL (12.0-15.5); LYMPHOCYTES % (AUTO) 13.5 % (13-45); MEAN CORPUSCULAR HEMOGLOBIN 30.9 pg (27.0-33.4); MEAN CORPUSCULAR VOLUME 88 fl (80-97); MONOCYTES % (AUTO) 9.2 % (3-13); PLATELET COUNT 313 10^3/uL (150-450); RED BLOOD COUNT 4.69 10^6/uL (3.72-5.28); SEGMENTED NEUTROPHILS % (AUTO) 75.7 % (42-78); TOTAL CELLS COUNTED % (AUTO) 100 %; WHITE BLOOD COUNT 9.8 10^3/uL (4.0-10.5)
[2019-09-23] MEDS ORDERED: HALOPERIDOL LACTATE INJ 5 MG/1 ML VIAL IM ONE (00:49)
[2019-09-23] MEDS ORDERED: BENZTROPINE MESYLATE INJ 2 MG/2 ML AMPULE IM ONE (00:50)
[2019-09-23 01:18] LABS: ALKALINE PHOSPHATASE 133 U/L (38-126); ANION GAP 7 (5-19); ASPARTATE AMINO TRANSFERASE 26 U/L (14-36); BILIRUBIN,TOTAL 0.4 mg/dL (0.2-1.3); BLOOD UREA NITROGEN 6 mg/dL (7-20); CALCIUM 9.1 mg/dL (8.4-10.2); CARBON DIOXIDE 28 mmol/L (22-30); CHLORIDE 97 mmol/L (98-107); GLUCOSE 118 mg/dL (75-110); POTASSIUM 3.6 mmol/L (3.6-5.0); TOTAL PROTEIN 6.7 g/dL (6.3-8.2)
[2019-09-23 01:28] LABS: ACETAMINOPHEN < 10 ug/mL (10-30); ALCOHOL < 10 mg/dL (NONE DETECTED); SALICYLATE < 1.0 mg/dL (2.0-20.0)
--- NOTE | 2019-09-23 01:35 | ER Document Report ---
Entered by KELLY BANDA SCRIBE 09/22/19 [id number] Acting as scribe for:MELBA OLMOS IV, MD ED Psych Disorder / Suicide - General Chief Complaint: Psych Problem Stated Complaint: PSYCH PROBLEM Mode of Arrival: Ambulatory Information source: Emergency Med Personnel Notes: This 64 year old female patient brought in by [facility] presents to the ED today for a psych evaluation. Patient is well known to the behavioral health team here and has a history of schizophrenia. Patient is also historically noncompliant with her medications. Patient is verbally and physically aggressive towards ED staff, so HPI is limited. TRAVEL OUTSIDE OF THE [place] IN LAST 30 DAYS: No - Related Data Allergies/Adverse Reactions: No Known Allergies Allergy (Verified 05/10/19 21:59) Past Medical History - General Information source: [facility] Records - Social History Smoking Status: Unknown if Ever Smoked Cigarette use (# per day): No Chew tobacco use (# tins/day): No Smoking Education Provided: No Family History: Reviewed & Not Pertinent Pulmonary Medical History: Reports: Hx Bronchitis, Hx COPD Musculoskeletal Medical History: Reports Hx Arthritis Psychiatric Medical History: Reports: Hx Schizophrenia Past Surgical History: Reports: Hx Orthopedic Surgery - Immunizations Hx Diphtheria, Pertussis, Tetanus Vaccination: No Review of Systems - Review of Systems -: Yes ROS unobtainable due to patient's medical condition Physical Exam - Vital signs Vitals: Temp 97.8 F 09/23/19 00:04 Interpretation: Normal - General General appearance: Alert In distress: None - HEENT Head: Normocephalic, Atraumatic Eyes: Normal Pupils: PERRL - Respiratory Respiratory status: No respiratory distress Chest status: Nontender Breath sounds: Normal Chest palpation: Normal - Cardiovascular Rhythm: Regular, Tachycardia Heart sounds: Normal auscultation Murmur: No Friction rub: No Gallop: None auscultated - Abdominal Inspection: Normal Distension: No distension Bowel sounds: Normal Tenderness: Nontender - Abdomen soft Organomegaly: No organomegaly - Back Back: Normal, Nontender - Extremities General upper extremity: Normal inspection General lower extremity: Normal inspection - Neurological Neuro grossly intact: Yes - Psychological Associated symptoms: Psychomotor agitation, Other - Uses foul language - Skin Skin Temperature: Warm Skin Moisture: Dry Skin Color: Normal Course - Vital Signs Vital signs: Temp Pulse Resp BP Pulse Ox 97.8 F 84 130/71 H 96 09/23/19 00:04 09/23/19 00:38 09/23/19 00:38 09/23/19 00:38 - Laboratory Result Diagrams: 09/23/19 00:22 09/23/19 00:22 Laboratory results interpreted by me: 09/23/19 00:22 Sodium 132.1 L Chloride 97 L BUN 6 L Creatinine 0.49 L Glucose 118 H Alkaline Phosphatase 133 H Salicylates < 1.0 L Acetaminophen < 10 L Discharge - Discharge Clinical Impression: Acute psychosis, Involuntary commitment, H/O schizophrenia Condition: Good Disposition: OTHER I personally performed the services described in the documentation, reviewed and edited the documentation which was dictated to the scribe in my presence, and it accurately records my words and actions.
[2019-09-23] MEDS ORDERED: HALOPERIDOL LACTATE INJ 5 MG/1 ML VIAL IM PRN (07:47)
[2019-09-23] MEDS ORDERED: BENZTROPINE MESYLATE INJ 2 MG/2 ML AMPULE IM PRN (07:48)
[2019-09-23] MEDS ORDERED: HALOPERIDOL DECANOATE INJ 100 MG/1 ML VIAL IM STA (14:43)
[2019-09-23] MEDS: BENZTROPINE MESYLATE INJ 2 MG/2 ML AMPULE IM SCH (16:26)
[2019-09-23] MEDS: ZIPRASIDONE MESYLATE INJ/PF 20 MG SDV IM PRN (16:26)
[2019-09-23] MEDS: LORAZEPAM INJ 2 MG/1 ML VIAL IM PRN (16:27)
--- NOTE | 2019-09-23 17:48 | PSYCHOLOGICAL NOTE ---
Psych Note - Psych Note Date seen by psych provider: 09/23/19 Time seen by psych provider: 14:00 Psych Note: Reason for consult: IVC petition for evaluation Patient is unable to engage effectively in evaluation. She is verbally aggressive and loud. Patient is unable/unwilling to understand current circumstances. Patient historically has been non-med compliant since May 2018. She has been seen 10 times now here in [facility] ED for similar etiology and has been inpatient 3 times, once at [place], once a [facility] and once in [facility]. Patient still has not successfully obtained previous baseline presentation she experienced before May 2018. Patient was IVC for concerns of breaking glass and walking on it, defecating through the home and walking on it. Active hallucinations, and being verbally aggressive with family and neighbors. Medication recommendations per [facility]'s contract psychiatrist Dr Miguel Ángel LUNDBERG are as follows Add Haldol Decanoate 200MG, one time dose Add Cogentin 1MG, daily Add Haldol 5MG, twice a day Add Geodon 20mg every 6 hours PRN Add Ativan 1mg every 12 hours PRN Impression/plan: Patient is recommended to continue under IVC; paperwork is signed and placed in patient's chart. Patient is well-known to clinician and department. Patient has a formal diagnosis of schizoaffective bipolar type per [facility]. Patient had been stable for decades until May 2018. Since then patient has been to [facility] ED 10 times with similar etiology (06/04/2018, 08/30/2018, 11/29/2018, 01/14/2019, 03/25/2019, 04/21/2019, 05/10/2019, 07/07/2019, 07/26/2019, and today's visit 09/22/2019). Medication recommendations have been provided. Placement cannot be looked for today as she was in restraints until this morning. Dr. Carlos was consulted in the care management of this patient; tending physicians agreement with recommendations and disp osition.
[2019-09-23] MEDS: HALOPERIDOL LACTATE INJ 5 MG/1 ML VIAL IM SCH (19:26)
[2019-09-23 22:50] LABS: APPEARANCE,URINE CLEAR; BILIRUBIN,URINE NEGATIVE (NEGATIVE); COLOR,URINE STRAW; GLUCOSE, URINE NEGATIVE (NEGATIVE); KETONES,URINE NEGATIVE (NEGATIVE); LEUKOCYTE ESTERASE,URINE NEGATIVE (NEGATIVE); NITRITE,URINE NEGATIVE (NEGATIVE); PROTEIN,URINE NEGATIVE (NEGATIVE); URINE SPECIFIC GRAVITY 1.002; UROBILINOGEN,URINE NEGATIVE mg/dL (<2.0)
[2019-09-23 23:07] LABS: URINE AMPHETAMINES SCREEN NEGATIVE; URINE BARBITURATES SCREEN NEGATIVE; URINE BENZODIAZEPINES SCREEN NEGATIVE; URINE COCAINE SCREEN NEGATIVE; URINE MARIJUANA (THC) SCREEN NEGATIVE; URINE METHADONE SCREEN NEGATIVE; URINE PHENCYCLIDINE SCREEN NEGATIVE
[2019-09-24] MEDS: LORAZEPAM INJ 2 MG/1 ML VIAL IM PRN ×2 (06:36→23:40)
[2019-09-24] MEDS: ZIPRASIDONE MESYLATE INJ/PF 20 MG SDV IM PRN ×2 (06:36→16:25)
[2019-09-24] MEDS: HALOPERIDOL LACTATE INJ 5 MG/1 ML VIAL IM SCH ×2 (09:35→17:17)
[2019-09-24] MEDS: BENZTROPINE MESYLATE INJ 2 MG/2 ML AMPULE IM SCH (09:35)
--- NOTE | 2019-09-24 10:47 | ER Document Report ---
Doctor's Note Notes: 09/24/19 10:47 Patient has no acute events overnight. She is much more calm than she was last evening. Vital signs are stable as recorded. Patient was started on new medications last evening.
--- NOTE | 2019-09-24 12:23 | EKG REPORT ---
SEVERITY:- BORDERLINE ECG - SINUS RHYTHM 69 : Confirmed by: Chuck Riley MD 24-Sep-2019 12:22:26
--- NOTE | 2019-09-24 16:52 | PSYCHOLOGICAL NOTE ---
Psych Note - Psych Note Date seen by psych provider: 09/24/19 Time seen by psych provider: 10:15 Psych Note: Reason for consult: IVC Check in conducted: Patient is now able to be redirected; however, still is verbally aggressive. Patient is NOT physically aggressive. Little other noted changes. Patient's referral packet sent for consideration: [facility]: no beds [facility]: reviewing packet @ 1000 Clinician called for update @ 1800, no answer @1900 clinician received phone call; confirmed she still needed placement; unfortunately, they did not have a chance to review her packet today. [facility]: not reviewed yet @ 1650 [place]: Denied; no reason provided Medication recommendations per [facility]'s contract psychiatrist Dr Miguel Ángel LUNDBERG are as follows Add Haldol Decanoate 200MG, one time dose Add Cogentin 1MG, daily Add Haldol 5MG, twice a day Add Geodon 20mg every 6 hours PRN Add Ativan 1mg every 12 hours PRN Impression/plan: Patient is recommended to continue under IVC. Patient is well- known to clinician and department. Patient has a formal diagnosis of schizoaffective bipolar type per [facility]. Patient had been stable for decades until May 2018. Medication recommendations have been provided. Dr. Carlos was consulted in the care management of this patient; tending physicians agreement with recommendations and disposition.
[2019-09-25] MEDS: BENZTROPINE MESYLATE INJ 2 MG/2 ML AMPULE IM SCH (11:07)
[2019-09-25] MEDS: HALOPERIDOL LACTATE INJ 5 MG/1 ML VIAL IM SCH ×2 (11:08→17:40)
[2019-09-25] MEDS: LORAZEPAM INJ 2 MG/1 ML VIAL IM PRN (12:01)
--- NOTE | 2019-09-25 13:44 | ER Document Report ---
Doctor's Note Notes: 09/25/19 13:45 Patient continues to talk loudly and get excessively excited. She did receive a dose of Ativan about 1 hour ago, and she has calmed down and is now resting quietly. Plan is still to try to transfer the patient to an inpatient psychiatric facility.
--- NOTE | 2019-09-25 14:46 | PSYCHOLOGICAL NOTE ---
Psych Note - Psych Note Date seen by psych provider: 09/25/19 Time seen by psych provider: 10:15 - Observation 1015. Spoke with son [id number]. Psych Note: Presenting Problem: Patient is a 64 year old female who presented to the [facility] ED 09/22/2019 via [facility], petitioned for IVC by her son for not eating in several days, walking around talking to herself, yelling at people that aren't there, cussing at friends and family, busted out windows then walked through the glass, throwing objects outside, lacking personal hygiene )no shower, had feces on her and smeared around the house), lighting cigarettes and throwing them on the floor and is noncompliant with her medications so progressively worsening. The IVC was maintain as FULL IVC, placement efforts started and patient administered a Haldol Deconoate 200MG shot on 09/23/2019 at 1626. Patient is well known to the [facility] ED and the Behavioral Health team. She has a history of Bipolar Disorder and noncompliance with medication/treatment. Observed patient standing at nurses station in front of Patient Safety Alan carrillo. When the Patient Clinical Informatics Physician said "I need you to go back to your room" she turned around and went back to her room. While this clinician was evaluating another patient diagonally across the brown from patient she could be heard cussing and yelling. At about 1200 patient was agitated and could be heard from [facility] Behavioral Health office yelling. She would not listen to attending nurse, required numerous prompts to go back to room, finally did and continued yelling. Attending Nurse made aware of PRN medications which she had already started looking into. Patient was alert and oriented to self, person, place and situation. Mood was irritable with congruent affect as evidenced by cussing and being loud (when she is not getting her way, baseline). She did not make any statements or gestures regarding SI/HI. Patient did not appear to be responding to internal stimuli as evidenced by fair eye contact and ability to ask for things she wanted/needed. Thought processes were linear. Conversational speech was within normal limits for rate, tone and prosody. Intellectual abilities are estimated to be average. Insight, judgment and impulse control were fair to poor as evidenced by mood irritability which is typical and baseline for patient (especially whens he doesn't get her way). Collateral: Attending medical staff noted patient lost her phone privileges for cussing and grabbing the nurses station phone after being told to calm down and go to her room. From [phone] spoke to patient's son/IVC petitioner Tyler ([phone]). He was calling to check in on patient. He stated she stopped taking her medications as usual and has not been tending to her personal hygiene (not showering, feces smeared all over her and the home), tearing up the home (breaking things, destr oying things) and aggressive to family and friends. Son noted he is off today to "clean the house up from her crisis." He was made aware of patient getting the long lasting shot and placement efforts started while she is in the ED. Reminded him that just like previous times whatever comes first some stabilization from the medications or placement. Diagnosis: Psychosis Agitation/Aggression Noncompliance with medication and treatment History of Bipolar Impression/Plan: Recommendation to maintain FULL IVC. Patient has a history of Bipolar and noncompliance with medication/treatment. She was administered a Haldol Deconoate 200MG shot 09/23/2019 at 1626 in addition to being prescribed/administered scheduled IM medications of Haldol 5MG BID and Cogentin 1MG QD. She has required some PRN Ativan (today and 09/24/2019 at 1625) and Geodon (09/24/2019 at 2340). Consulted with Dr. Carlos regarding the management and care of patient. ED Physician in agreement with recommendations.
[2019-09-26 07:07] VITALS: BP 124/71
[2019-09-26] MEDS: HALOPERIDOL LACTATE INJ 5 MG/1 ML VIAL IM SCH ×2 (11:19→18:01)
[2019-09-26] MEDS: BENZTROPINE MESYLATE INJ 2 MG/2 ML AMPULE IM SCH (11:19)
--- NOTE | 2019-09-26 15:29 | ER Document Report ---
Doctor's Note Notes: 09/26/19 15:27 Patient has had an uneventful day today. She remains on IVC papers. At this time she is pending evaluation by the behavioral health team to decide if she still needs psychiatric facility referral.
--- NOTE | 2019-09-26 20:04 | PSYCHOLOGICAL NOTE ---
Psych Note - Psych Note Date seen by psych provider: 09/26/19 Time seen by psych provider: 10:15 Psych Note: Presenting Problem: Patient is a 64 year old female who presented to the [facility] ED 09/22/2019 via [facility], petitioned for IVC by her son for not eating in several days, walking around talking to herself, yelling at people that aren't there, cussing at friends and family, busted out windows then walked through the glass, throwing objects outside, lacking personal hygiene (no shower, had feces on her and smeared around the house), lighting cigarettes and throwing them on the floor and is noncompliant with her medications so progressively worsening. The IVC was ma intain as FULL IVC, placement efforts started and patient administered a Haldol Deconoate 200MG shot on 09/23/2019 at 1626. Patient is well known to the [facility] ED and the Behavioral Health team. She has a history of Schizoaffective Disorder Bipolar Type (updated/corrected from yesterday) and noncompliance with medication/treatment. Today makes day 3 since receiving Haldol Deconoate shot as well as continued scheduled IM shots of Haldol and Cogentin. Observed patient staying in her room today even when there was crisis with another patient. She interacted with staff appropriately. She was easily redirected. She did not yell and curse. Patient was alert and oriented to self, person, place and situation. Mood was euthymmic with congruent affect. She did not make any statements or gestures regarding SI/HI. Patient did not appear to be responding to internal stimuli as evidenced by fair eye contact and ability to ask for things she wanted/needed. Thought processes were linear. Conversational speech was within normal limits for rate, tone and prosody. Intellectual abilities are estimated to be average. Insight, judgment and impulse control were fair as evidenced by being easily redirected and not yelling/cursing. At 1519 called son to arrange for transportation at discharge. He identified he works until 1800 but would be to ED right after. Clinical Presentation: Psychosis Agitation/Aggression Noncompliance with medication and treatment Diagnosis: History of Schizoaffective Disorder Bipolar Type (updated/corrected from yesterday) Impression/Plan: Patient is cleared from acute psychiatric services. Recommendation to RESCIND FULL IVC. Patient has a history of Schizoaffective Bipolar Type and noncompliance with medication/treatment. She was administered a Haldol Deconoate 200MG shot 09/23/2019 at 1626 in addition to being prescribed/administered scheduled IM medications of Haldol 5MG BID and Cogentin 1MG QD for the past 3 days. Current presentation is felt to be her baseline. Coordinated with patient's son for transportation home. Both MCM numbers and information for walk in to [place] and/or [facility] were included in Discharge Paperwork. Consulted with Dr. Carlos regarding the management and care of patient. ED Physician in agreement with recommendations.
== END 2019-09-26 18:56 | disposition home or self-care (01) ==
LOC: ER 23:53
DX: Z04.6 Encounter for general psychiatric examination, requested by authority (principal); F23 Brief psychotic disorder; J44.9 Chronic obstructive pulmonary disease, unspecified; Z86.59 Personal history of other mental and behavioral disorders
CPT/HCPCS: 93005; 99285; 96372; 36415; 80307 ×4; 85025; 80053; 81001; 93010; J0515 ×4; J1631; J1630 ×4; J2060 ×3; J3486 ×2